=== PATIENT | male | born 1990 | race African-American/Black ===

== ENCOUNTER 2016-12-29 15:38 | Emergency (ER) | payer SELFPAY ==
[2016-12-29 15:44] VITALS: BP 135/82
--- NOTE | 2016-12-29 16:20 | ER Document Report ---
ED Medical Screen (RME) - General Stated Complaint: BACK PAIN Notes: Patient complains of lower back pain that started yesterday after moving heavy items out of his yard. States he has had back pain before. Pain will radiate occasionally down the right leg. Denies loss of control of bowels or bladder. I have greeted and performed a rapid initial assessment of this patient. A comprehensive ED assessment and evaluation of the patient, analysis of test results and completion of the medical decision making process will be conducted by additional ED providers. - Related Data Allergies/Adverse Reactions: No Known Allergies Allergy (Verified 10/08/13 14:02) Past Medical History - Past Medical History Cardiac Medical History: Denies: Hx Atrial Fibrillation, Hx Congestive Heart Failure, Hx Coronary Artery Disease, Hx DVT, Hx Heart Attack, Hx Hypercholesterolemia, Hx Hypertension, Hx Peripheral Vascular Disease, Hx Pulmonary Embolism Pulmonary Medical History: Denies: Hx Asthma, Hx Bronchitis, Hx COPD, Hx Pneumonia Neurological Medical History: Denies: Hx Cerebrovascular Accident, Hx Migraine, Hx Seizures Endocrine Medical History: Reports: Hx Diabetes Mellitus Type 1 Renal/ Medical History: Denies: Hx Benign Prostatic Hyperplasia, Hx End Stage Renal Disease, Hx Epididymitis, Hx Hemodialysis, Hx Hydrocele, Hx Kidney Stones , Hx Peritoneal Dialysis, Hx Renal Insufficiency, Hx Testicular Torsion, Hx Varicocele Malignancy Medical History: Denies Hx Bone Cancer, Denies Hx Brain Cancer, Denies Hx Colorectal Cancer, Denies Hx Leukemia, Denies Hx Liver Cancer, Denies Hx Lung Cancer, Denies Hx Lymphoma, Denies Hx Pancreatic Cancer, Denies Hx Prostate Cancer, Denies Hx Renal (Kidney) Cancer, Denies Hx Skin Cancer, Denies Hx Testicular Cancer GI Medical History: Reports: Hx Gastroesophageal Reflux Disease. Denies: Hx Cirrhosis, Hx Crohn's Disease, Hx Diverticulitis, Hx Gastritis, Hx Hepatitis, Hx Hiatal Hernia, Hx Irritable Bowel, Hx Liver Failure, Hx Ulcer, Hx Ulcerative Colitis Musculoskeltal Medical History: Denies Hx Arthritis, Denies Hx Fibromyalgia, Denies Hx Gout, Denies Hx Multiple Sclerosis, Denies Hx Muscular Dystrophy, Denies Hx Muscle Spasm, Denies Hx Muscle Weakness, Denies Hx Musculoskeletal Deformity, Denies Hx Musculoskeletal Trauma Skin Medical History: Denies Hx Cellulitis, Denies Hx Eczema, Denies Hx MRSA, Denies Hx Psoriasis Psychiatric Medical History: Denies: Hx Anxiety, Hx Attention Deficit Hyperactivity Disorder, Hx Bipolar Disorder, Hx Borderline Personality Disorder, Hx Dementia, Hx Depression, Hx Obsessive Compulsive Disorder, Hx Personality Disorder, Hx Post Traumatic Stress Disorder, Hx Schizoaffective Disorder, Hx Schizophrenia Traumatic Medical History: Denies: Hx Fractures, Hx Gunshot Wound, Hx Liver Laceration, Hx Pneumothorax, Hx Spine Fracture, Hx Spleen Laceration/Rupture, Hx Traumatic Brain Injury Infectious Medical History: Denies: Hx C-Diff, Hx Hepatitis, Hx HIV, Hx MRSA, Hx VRE Past Surgical History: Reports: Hx Appendectomy - Immunizations Hx Diphtheria, Pertussis, Tetanus Vaccination: Yes - unk Physical Exam - Vital signs Vitals: Temp Pulse Resp BP Pulse Ox 98.4 F 78 16 135/82 H 97 12/29/16 15:43 12/29/16 15:43 12/29/16 15:43 12/29/16 15:43 12/29/16 15:43 - Back Notes: tender lspine and right lumbar muscles more than left. Course - Vital Signs Vital signs: Temp Pulse Resp BP Pulse Ox 98.4 F 78 16 135/82 H 97 12/29/16 15:43 12/29/16 15:43 12/29/16 15:43 12/29/16 15:43 12/29/16 15:43
== END 2016-12-29 19:29 | disposition left against medical advice (07) ==
LOC: ER 15:38
DX: M54.5 Low back pain (principal); E10.9 Type 1 diabetes mellitus without complications; Z53.20 Procedure and treatment not carried out because of patient's decision for unspecified reasons
CPT/HCPCS: 99281

== ENCOUNTER 2017-03-02 09:29 | Emergency (ER) | payer SELFPAY ==
--- NOTE | 2017-03-02 09:46 | ER Document Report ---
ED Medical Screen (RME) - General Chief Complaint: Headache Stated Complaint: FLANK PAIN Time Seen by Provider: 03/02/17 09:39 Notes: The patient is a 26-year-old male, no past medical history, who presents with 4 days of intermittent frontal headache, blurry vision and right flank pain. He has never had these symptoms in the past. No history of kidney stones or migraines. Non-focal neuro exam, non-tender right flank I have greeted and performed a rapid initial assessment of this patient. A comprehensive ED assessment and evaluation of the patient, analysis of test results and completion of the medical decision making process will be conducted by additional ED providers. TRAVEL OUTSIDE OF THE [place] IN LAST 30 DAYS: No - Related Data Allergies/Adverse Reactions: No Known Allergies Allergy (Verified 12/29/16 16:20) Past Medical History - Past Medical History Cardiac Medical History: Denies: Hx Atrial Fibrillation, Hx Congestive Heart Failure, Hx Coronary Artery Disease, Hx DVT, Hx Heart Attack, Hx Hypercholesterolemia, Hx Hypertension, Hx Peripheral Vascular Disease, Hx Pulmonary Embolism Pulmonary Medical History: Denies: Hx Asthma, Hx Bronchitis, Hx COPD, Hx Pneumonia Neurological Medical History: Denies: Hx Cerebrovascular Accident, Hx Migraine, Hx Seizures Endocrine Medical History: Reports: Hx Diabetes Mellitus Type 1 Renal/ Medical History: Denies: Hx Benign Prostatic Hyperplasia, Hx End Stage Renal Disease, Hx Epididymitis, Hx Hemodialysis, Hx Hydrocele, Hx Kidney Stones , Hx Peritoneal Dialysis, Hx Renal Insufficiency, Hx Testicular Torsion, Hx Varicocele Malignancy Medical History: Denies Hx Bone Cancer, Denies Hx Brain Cancer, Denies Hx Colorectal Cancer, Denies Hx Leukemia, Denies Hx Liver Cancer, Denies Hx Lung Cancer, Denies Hx Lymphoma, Denies Hx Pancreatic Cancer, Denies Hx Prostate Cancer, Denies Hx Renal (Kidney) Cancer, Denies Hx Skin Cancer, Denies Hx Testicular Cancer GI Medical History: Reports: Hx Gastroesophageal Reflux Disease. Denies: Hx Cirrhosis, Hx Crohn's Disease, Hx Diverticulitis, Hx Gastritis, Hx Hepatitis, Hx Hiatal Hernia, Hx Irritable Bowel, Hx Liver Failure, Hx Ulcer, Hx Ulcerative Colitis Musculoskeltal Medical History: Denies Hx Arthritis, Denies Hx Fibromyalgia, Denies Hx Gout, Denies Hx Multiple Sclerosis, Denies Hx Muscular Dystrophy, Denies Hx Muscle Spasm, Denies Hx Muscle Weakness, Denies Hx Musculoskeletal Deformity, Denies Hx Musculoskeletal Trauma Skin Medical History: Denies Hx Cellulitis, Denies Hx Eczema, Denies Hx MRSA, Denies Hx Psoriasis Psychiatric Medical History: Denies: Hx Anxiety, Hx Attention Deficit Hyperactivity Disorder, Hx Bipolar Disorder, Hx Borderline Personality Disorder, Hx Dementia, Hx Depression, Hx Obsessive Compulsive Disorder, Hx Personality Disorder, Hx Post Traumatic Stress Disorder, Hx Schizoaffective Disorder, Hx Schizophrenia Traumatic Medical History: Denies: Hx Fractures, Hx Gunshot Wound, Hx Liver Laceration, Hx Pneumothorax, Hx Spine Fracture, Hx Spleen Laceration/Rupture, Hx Traumatic Brain Injury Infectious Medical History: Denies: Hx C-Diff, Hx Hepatitis, Hx HIV, Hx MRSA, Hx VRE Past Surgical History: Reports: Hx Appendectomy - Immunizations Hx Diphtheria, Pertussis, Tetanus Vaccination: Yes - unk Physical Exam - Vital signs Vitals: Pulse Resp BP Pulse Ox 62 18 151/94 H 100 03/02/17 09:38 03/02/17 09:38 03/02/17 09:38 03/02/17 09:38 Course - Vital Signs Vital signs: Temp Pulse Resp BP Pulse Ox 98.1 F 62 18 151/94 H 100 03/02/17 09:41 03/02/17 09:38 03/02/17 09:38 03/02/17 09:38 03/02/17 09:38
[2017-03-02 10:17] LABS: APPEARANCE,URINE CLEAR; BILIRUBIN,URINE NEGATIVE (NEGATIVE); GLUCOSE, URINE NEGATIVE (NEGATIVE); KETONES,URINE 20 mg/dL (NEGATIVE); LEUKOCYTE ESTERASE,URINE NEGATIVE (NEGATIVE); NITRITE,URINE NEGATIVE (NEGATIVE); PROTEIN,URINE NEGATIVE (NEGATIVE); URINE SPECIFIC GRAVITY 1.024
[2017-03-02] MEDS ORDERED: PROCHLORPERAZINE EDISYLATE INJ 10 MG/2 ML VIAL IV ONE (10:56)
[2017-03-02] MEDS ORDERED: NORMAL SALINE 1000 ML 1,000 ML IV PRN (10:56)
[2017-03-02] MEDS ORDERED: ONDANSETRON HCL INJ/PF 4 MG/2 ML SDV IV ONE (10:56)
[2017-03-02 11:50] LABS: HEMATOCRIT 41.2 % (37.9-51.0); HEMOGLOBIN 13.9 g/dL (13.5-17.0); HGB HCT DIFFERENCE 0.5; MEAN CORPUSCULAR HEMOGLOBIN 28.4 pg (27.0-33.4); MEAN CORPUSCULAR HGB CONC 33.8 g/dL (32.0-36.0); MEAN CORPUSCULAR VOLUME 84 fl (80-97); RED CELL DISTRIBUTION WIDTH 14.6 % (11.5-14.0); WHITE BLOOD COUNT 8.8 10^3/uL (4.0-10.5)
[2017-03-02 12:07] LABS: ALANINE AMINOTRANSFERASE 41 U/L (21-72); ALBUMIN 4.3 g/dL (3.5-5.0); ALKALINE PHOSPHATASE 65 U/L (38-126); ANION GAP 14 (5-19); ASPARTATE AMINO TRANSFERASE 19 U/L (17-59); BILIRUBIN,DIRECT 0.2 mg/dL (0.0-0.4); BILIRUBIN,TOTAL 0.8 mg/dL (0.2-1.3); BLOOD UREA NITROGEN 12 mg/dL (7-20); CALCIUM 9.6 mg/dL (8.4-10.2); CARBON DIOXIDE 25 mmol/L (22-30); CHLORIDE 104 mmol/L (98-107); CREATININE RESULT 0.82 mg/dL (0.52-1.25); GLUCOSE 103 mg/dL (75-110); LIPASE 40.7 U/L (23-300); POTASSIUM 3.8 mmol/L (3.6-5.0); SODIUM 143.4 mmol/L (137-145); TOTAL PROTEIN 6.8 g/dL (6.3-8.2)
[2017-03-02 12:12] LABS: URINE BARBITURATES SCREEN NEGATIVE; URINE METHADONE SCREEN NEGATIVE; URINE OPIATES LOW NEGATIVE; URINE PHENCYCLIDINE SCREEN NEGATIVE
[2017-03-02 12:30] VITALS: BP 161/98
--- NOTE | 2017-03-02 12:37 | ER Document Report ---
ED General - General Chief Complaint: Headache Stated Complaint: FLANK PAIN Time Seen by Provider: 03/02/17 09:39 TRAVEL OUTSIDE OF THE [place] IN LAST 30 DAYS: No - HPI Patient complains to provider of: headache flank pain feeling unwell Notes: Patient's coming in for evaluation of right flank pain headache global feeling unwell. Is been ongoing for approximately 3-4 days. Patient denies any fevers chills nausea vomiting diarrhea chest pain abdominal pain. Patient denies any recent travel denies any recent trauma. According to the significant other at bedside patient does have a very poor diet patient has been monitoring his blood pressure at home which has been reading "very high"patient blood pressure today is elevated. Patient does have a family history of diabetes and hypertension. Patient states he does not smoke does not do any drugs. - Related Data Allergies/Adverse Reactions: No Known Allergies Allergy (Verified 12/29/16 16:20) Past Medical History - Social History Smoking Status: Current Every Day Smoker Chew tobacco use (# tins/day): No Frequency of alcohol use: None Drug Abuse: Marijuana Family History: Reviewed & Not Pertinent Patient has suicidal ideation: No Patient has homicidal ideation: No - Past Medical History Cardiac Medical History: Denies: Hx Atrial Fibrillation, Hx Congestive Heart Failure, Hx Coronary Artery Disease, Hx DVT, Hx Heart Attack, Hx Hypercholesterolemia, Hx Hypertension, Hx Peripheral Vascular Disease, Hx Pulmonary Embolism Pulmonary Medical History: Denies: Hx Asthma, Hx Bronchitis, Hx COPD, Hx Pneumonia Neurological Medical History: Denies: Hx Cerebrovascular Accident, Hx Migraine, Hx Seizures Endocrine Medical History: Reports: Hx Diabetes Mellitus Type 1 Renal/ Medical History: Denies: Hx Benign Prostatic Hyperplasia, Hx End Stage Renal Disease, Hx Epididymitis, Hx Hemodialysis, Hx Hydrocele, Hx Kidney Stones , Hx Peritoneal Dialysis, Hx Renal Insufficiency, Hx Testicular Torsion, Hx Varicocele Malignancy Medical History: Denies Hx Bone Cancer, Denies Hx Brain Cancer, Denies Hx Colorectal Cancer, Denies Hx Leukemia, Denies Hx Liver Cancer, Denies Hx Lung Cancer, Denies Hx Lymphoma, Denies Hx Pancreatic Cancer, Denies Hx Prostate Cancer, Denies Hx Renal (Kidney) Cancer, Denies Hx Skin Cancer, Denies Hx Testicular Cancer GI Medical History: Reports: Hx Gastroesophageal Reflux Disease. Denies: Hx Cirrhosis, Hx Crohn's Disease, Hx Diverticulitis, Hx Gastritis, Hx Hepatitis, Hx Hiatal Hernia, Hx Irritable Bowel, Hx Liver Failure, Hx Ulcer, Hx Ulcerative Colitis Musculoskeltal Medical History: Denies Hx Arthritis, Denies Hx Fibromyalgia, Denies Hx Gout, Denies Hx Multiple Sclerosis, Denies Hx Muscular Dystrophy, Denies Hx Muscle Spasm, Denies Hx Muscle Weakness, Denies Hx Musculoskeletal Deformity, Denies Hx Musculoskeletal Trauma Skin Medical History: Denies Hx Cellulitis, Denies Hx Eczema, Denies Hx MRSA, Denies Hx Psoriasis Psychiatric Medical History: Denies: Hx Anxiety, Hx Attention Deficit Hyperactivity Disorder, Hx Bipolar Disorder, Hx Borderline Personality Disorder, Hx Dementia, Hx Depression, Hx Obsessive Compulsive Disorder, Hx Personality Disorder, Hx Post Traumatic Stress Disorder, Hx Schizoaffective Disorder, Hx Schizophrenia Traumatic Medical History: Denies: Hx Fractures, Hx Gunshot Wound, Hx Liver Laceration, Hx Pneumothorax, Hx Spine Fracture, Hx Spleen Laceration/Rupture, Hx Traumatic Brain Injury Infectious Medical History: Denies: Hx C-Diff, Hx Hepatitis, Hx HIV, Hx MRSA, Hx VRE Past Surgical History: Reports: Hx Appendectomy - Immunizations Hx Diphtheria, Pertussis, Tetanus Vaccination: Yes - unk Hx Pneumococcal Vaccination: 10/22/10 Review of Systems - Review of Systems Constitutional: Other - Feeling unwell right flank pain EENT: No symptoms reported Cardiovascular: No symptoms reported Respiratory: No symptoms reported Gastrointestinal: No symptoms reported Genitourinary: No symptoms reported Male Genitourinary: No symptoms reported Musculoskeletal: No symptoms reported Skin: No symptoms reported Hematologic/Lymphatic: No symptoms reported Neurological/Psychological: No symptoms reported Physical Exam - Vital signs Vitals: Pulse Resp BP Pulse Ox 62 18 151/94 H 100 03/02/17 09:38 03/02/17 09:38 03/02/17 09:38 03/02/17 09:38 Interpretation: Normal - General General appearance: Appears well, Alert - HEENT Head: Normocephalic, Atraumatic Eyes: Normal Pupils: PERRL - Respiratory Respiratory status: No respiratory distress Chest status: Nontender Breath sounds: Normal Chest palpation: Normal - Cardiovascular Rhythm: Regular Heart sounds: Normal auscultation Murmur: No - Abdominal Inspection: Normal Distension: No distension Bowel sounds: Normal Tenderness: Nontender Organomegaly: No organomegaly - Back Back: Normal, Nontender - Extremities General upper extremity: Normal inspection, Nontender, Normal color, Normal ROM , Normal temperature General lower extremity: Normal inspection, Nontender, Normal color, Normal ROM , Normal temperature, Normal weight bearing. No: Demi's sign - Neurological Neuro grossly intact: Yes Cognition: Normal Orientation: AAOx4 Juan C Coma Scale Eye Opening: Spontaneous Lyndon Coma Scale Verbal: Oriented Juan C Coma Scale Motor: Obeys Commands Lyndon Coma Scale Total: 15 Speech: Normal Motor strength normal: LUE, RUE, LLE, RLE Sensory: Normal - Psychological Associated symptoms: Normal affect, Normal mood - Skin Skin Temperature: Warm Skin Moisture: Dry Skin Color: Normal Course - Re-evaluation Re-evalutation: 03/02/17 15:26 Patient coming in for evaluation of flank pain. Urine does show an elevated specific gravity possibly custody your dehydration. Patient was given IV fluids patient's feeling better after medication. Patient's blood pressure does continue to elevate will start patient on hydrochlorothiazide. Patient will be discharged home follow-up along the local clinics or PCP. 03/02/17 15:27 The patient presents with headache without signs of PROCEDURE RN bleed, stroke, infection , or other serious etiology. The patient is neurologically intact. Given the extremely low risk of these diagnoses further testing and evaluation for these possibilities does not appear to be indicated at this time. The patient has been instructed to return if the symptoms worsen or change in any way.. - Vital Signs Vital signs: Temp Pulse Resp BP Pulse Ox 97.8 F 64 20 161/98 H 100 03/02/17 12:29 03/02/17 12:29 03/02/17 12:29 03/02/17 12:29 03/02/17 12:29 - Laboratory Result Diagrams: 03/02/17 11:40 03/02/17 11:40 Laboratory results interpreted by me: 03/02/17 03/02/17 09:54 11:40 RDW 14.6 H Urine Ketones 20 H Urine Urobilinogen 2.0 H Discharge - Discharge Clinical Impression: Dehydration Headache Qualifiers: Headache type: unspecified Headache chronicity pattern: unspecified pattern Intractability: not intractable Qualified Code(s): R51 - Headache Hypertension Qualifiers: Hypertension type: essential hypertension Qualified Code(s): I10 - Essential ( primary) hypertension Condition: Good Disposition: HOME, SELF-CARE Instructions: Headache ([facility]), Hydrochlorothiazide ([facility]), Family Physicians / Practices Additional Instructions: You were evaluated today for headache feeling unwell. Lab work is consistent with dehydration, your urine was very concentrated. The rest of the lab looks very well no signs of diabetes. Your blood pressure has remained elevated. Will start you on a medication: Hydrochlorothiazide I highly recommend following up with the clinics provided or the doctors provided for further management of your blood pressure. Please drink plenty water please eat healthy You may take the Compazine for your headache Prescriptions: Hydrochlorothiazide 12.5 mg PO DAILY #30 capsule Prochlorperazine Maleate [Compazine] 10 mg PO Q6 #20 tablet Forms: Return to Work
== END 2017-03-02 12:55 | disposition home or self-care (01) ==
LOC: ER 09:29
DX: I10 Essential (primary) hypertension (principal); E86.0 Dehydration; R51 Headache; R10.9 Unspecified abdominal pain; E10.9 Type 1 diabetes mellitus without complications; Z83.3 Family history of diabetes mellitus; Z82.49 Family history of ischemic heart disease and other diseases of the circulatory system
CPT/HCPCS: 99284; 96361; 96374; 96375; 36415; 83690; 85027; 80053; 81001; 80307; 83036; J0780; J2405; J7030

== ENCOUNTER 2017-03-25 13:55 | Emergency (ER) | payer SELFPAY ==
--- NOTE | 2017-03-25 14:17 | ER Document Report ---
ED Medical Screen (RME) - General Stated Complaint: BLOOD PRESSURE PROBLEMS Time Seen by Provider: 03/25/17 14:15 Notes: abdominal pain for 3 days, nausea without vomiting sweating for one month after starting HTN med TRAVEL OUTSIDE OF THE [place] IN LAST 30 DAYS: No - Related Data Allergies/Adverse Reactions: No Known Allergies Allergy (Verified 12/29/16 16:20) Past Medical History - Past Medical History Cardiac Medical History: Denies: Hx Atrial Fibrillation, Hx Congestive Heart Failure, Hx Coronary Artery Disease, Hx DVT, Hx Heart Attack, Hx Hypercholesterolemia, Hx Hypertension, Hx Peripheral Vascular Disease, Hx Pulmonary Embolism Pulmonary Medical History: Denies: Hx Asthma, Hx Bronchitis, Hx COPD, Hx Pneumonia Neurological Medical History: Denies: Hx Cerebrovascular Accident, Hx Migraine, Hx Seizures Endocrine Medical History: Reports: Hx Diabetes Mellitus Type 1 Renal/ Medical History: Denies: Hx Benign Prostatic Hyperplasia, Hx End Stage Renal Disease, Hx Epididymitis, Hx Hemodialysis, Hx Hydrocele, Hx Kidney Stones , Hx Peritoneal Dialysis, Hx Renal Insufficiency, Hx Testicular Torsion, Hx Varicocele Malignancy Medical History: Denies Hx Bone Cancer, Denies Hx Brain Cancer, Denies Hx Colorectal Cancer, Denies Hx Leukemia, Denies Hx Liver Cancer, Denies Hx Lung Cancer, Denies Hx Lymphoma, Denies Hx Pancreatic Cancer, Denies Hx Prostate Cancer, Denies Hx Renal (Kidney) Cancer, Denies Hx Skin Cancer, Denies Hx Testicular Cancer GI Medical History: Reports: Hx Gastroesophageal Reflux Disease. Denies: Hx Cirrhosis, Hx Crohn's Disease, Hx Diverticulitis, Hx Gastritis, Hx Hepatitis, Hx Hiatal Hernia, Hx Irritable Bowel, Hx Liver Failure, Hx Ulcer, Hx Ulcerative Colitis Musculoskeltal Medical History: Denies Hx Arthritis, Denies Hx Fibromyalgia, Denies Hx Gout, Denies Hx Multiple Sclerosis, Denies Hx Muscular Dystrophy, Denies Hx Muscle Spasm, Denies Hx Muscle Weakness, Denies Hx Musculoskeletal Deformity, Denies Hx Musculoskeletal Trauma Skin Medical History: Denies Hx Cellulitis, Denies Hx Eczema, Denies Hx MRSA, Denies Hx Psoriasis Psychiatric Medical History: Denies: Hx Anxiety, Hx Attention Deficit Hyperactivity Disorder, Hx Bipolar Disorder, Hx Borderline Personality Disorder, Hx Dementia, Hx Depression, Hx Obsessive Compulsive Disorder, Hx Personality Disorder, Hx Post Traumatic Stress Disorder, Hx Schizoaffective Disorder, Hx Schizophrenia Traumatic Medical History: Denies: Hx Fractures, Hx Gunshot Wound, Hx Liver Laceration, Hx Pneumothorax, Hx Spine Fracture, Hx Spleen Laceration/Rupture, Hx Traumatic Brain Injury Infectious Medical History: Denies: Hx C-Diff, Hx Hepatitis, Hx HIV, Hx MRSA, Hx VRE Past Surgical History: Reports: Hx Appendectomy - Immunizations Hx Diphtheria, Pertussis, Tetanus Vaccination: Yes - unk
[2017-03-25] MEDS ORDERED: ONDANSETRON 4 MG TAB.RAPDIS PO ONE (14:18)
[2017-03-25 15:35] LABS: ABSOLUTE BASOPHILS # (AUTO) 0.1 10^3/uL (0.0-0.2); ABSOLUTE EOSINOPHILS # (AUTO) 0.7 10^3/uL (0.0-0.6); ABSOLUTE LYMPHOCYTES (AUTO) 3.2 10^3/uL (0.5-4.7); ABSOLUTE MONOCYTES (AUTO) 0.7 10^3/uL (0.1-1.4); ABSOLUTE NEUT (AUTO) 6.3 10^3/uL (1.7-8.2); BASOPHILS % (AUTO) 0.8 % (0-2); HEMATOCRIT 48.7 % (37.9-51.0); HEMOGLOBIN 16.3 g/dL (13.5-17.0); HGB HCT DIFFERENCE 0.2; LYMPHOCYTES % (AUTO) 29.3 % (13-45); MEAN CORPUSCULAR HEMOGLOBIN 27.9 pg (27.0-33.4); MEAN CORPUSCULAR HGB CONC 33.5 g/dL (32.0-36.0); MEAN CORPUSCULAR VOLUME 83 fl (80-97); MONOCYTES % (AUTO) 6.5 % (3-13); RED BLOOD COUNT 5.84 10^6/uL (4.35-5.55); RED CELL DISTRIBUTION WIDTH 14.2 % (11.5-14.0); SEGMENTED NEUTROPHILS % (AUTO) 57.4 % (42-78); WHITE BLOOD COUNT 10.9 10^3/uL (4.0-10.5)
[2017-03-25 15:52] LABS: ANION GAP 17 (5-19); BLOOD UREA NITROGEN 17 mg/dL (7-20); CALCIUM 10.6 mg/dL (8.4-10.2); CARBON DIOXIDE 25 mmol/L (22-30); CHLORIDE 95 mmol/L (98-107); CREATININE RESULT 1.17 mg/dL (0.52-1.25); GLUCOSE 107 mg/dL (75-110); LIPASE 60.3 U/L (23-300); POTASSIUM 3.8 mmol/L (3.6-5.0); SODIUM 136.6 mmol/L (137-145)
[2017-03-25 16:30] VITALS: BP 132/99
[2017-03-25] MEDS ORDERED: AMLODIPINE BESYLATE 5 MG TABLET PO ONE (16:37)
[2017-03-25] MEDS ORDERED: ONDANSETRON ODT 4 MG TAB (6 TAB/DSPK) PO PRN (16:37)
--- NOTE | 2017-03-25 16:38 | ER Document Report ---
ED GI/ - General Chief Complaint: Abdominal Pain Stated Complaint: BLOOD PRESSURE PROBLEMS Time Seen by Provider: 03/25/17 14:15 Mode of Arrival: Ambulatory Information source: Patient Notes: Patient is a 27-year-old male who presents to the ER today for sweating, lightheadedness, drinking lots of water but unable to urinate sometimes. Patient was started on hydrochlorothiazide 1 month ago and states that all of the symptoms began since that time. He also stopped smoking marijuana 3 days ago and states that the symptoms have all worsened since that time. He admits to some abdominal pain all in the center of his abdomen since stopping smoking marijuana. TRAVEL OUTSIDE OF THE [place] IN LAST 30 DAYS: No - Related Data Allergies/Adverse Reactions: No Known Allergies Allergy (Verified 12/29/16 16:20) Past Medical History - General Information source: Patient - Social History Smoking Status: Current Every Day Smoker Family History: Reviewed & Not Pertinent - Past Medical History Cardiac Medical History: Denies: Hx Atrial Fibrillation, Hx Congestive Heart Failure, Hx Coronary Artery Disease, Hx DVT, Hx Heart Attack, Hx Hypercholesterolemia, Hx Hypertension, Hx Peripheral Vascular Disease, Hx Pulmonary Embolism Pulmonary Medical History: Denies: Hx Asthma, Hx Bronchitis, Hx COPD, Hx Pneumonia Neurological Medical History: Denies: Hx Cerebrovascular Accident, Hx Migraine, Hx Seizures Endocrine Medical History: Reports: Hx Diabetes Mellitus Type 1 Renal/ Medical History: Denies: Hx Benign Prostatic Hyperplasia, Hx End Stage Renal Disease, Hx Epididymitis, Hx Hemodialysis, Hx Hydrocele, Hx Kidney Stones , Hx Peritoneal Dialysis, Hx Renal Insufficiency, Hx Testicular Torsion, Hx Varicocele Malignancy Medical History: Denies Hx Bone Cancer, Denies Hx Brain Cancer, Denies Hx Colorectal Cancer, Denies Hx Leukemia, Denies Hx Liver Cancer, Denies Hx Lung Cancer, Denies Hx Lymphoma, Denies Hx Pancreatic Cancer, Denies Hx Prostate Cancer, Denies Hx Renal (Kidney) Cancer, Denies Hx Skin Cancer, Denies Hx Testicular Cancer GI Medical History: Reports: Hx Gastroesophageal Reflux Disease. Denies: Hx Cirrhosis, Hx Crohn's Disease, Hx Diverticulitis, Hx Gastritis, Hx Hepatitis, Hx Hiatal Hernia, Hx Irritable Bowel, Hx Liver Failure, Hx Ulcer, Hx Ulcerative Colitis Musculoskeltal Medical History: Denies Hx Arthritis, Denies Hx Fibromyalgia, Denies Hx Gout, Denies Hx Multiple Sclerosis, Denies Hx Muscular Dystrophy, Denies Hx Muscle Spasm, Denies Hx Muscle Weakness, Denies Hx Musculoskeletal Deformity, Denies Hx Musculoskeletal Trauma Skin Medical History: Denies Hx Cellulitis, Denies Hx Eczema, Denies Hx MRSA, Denies Hx Psoriasis Psychiatric Medical History: Denies: Hx Anxiety, Hx Attention Deficit Hyperactivity Disorder, Hx Bipolar Disorder, Hx Borderline Personality Disorder, Hx Dementia, Hx Depression, Hx Obsessive Compulsive Disorder, Hx Personality Disorder, Hx Post Traumatic Stress Disorder, Hx Schizoaffective Disorder, Hx Schizophrenia Traumatic Medical History: Denies: Hx Fractures, Hx Gunshot Wound, Hx Liver Laceration, Hx Pneumothorax, Hx Spine Fracture, Hx Spleen Laceration/Rupture, Hx Traumatic Brain Injury Infectious Medical History: Denies: Hx C-Diff, Hx Hepatitis, Hx HIV, Hx MRSA, Hx VRE Past Surgical History: Reports: Hx Appendectomy - Immunizations Hx Diphtheria, Pertussis, Tetanus Vaccination: Yes - unk Hx Pneumococcal Vaccination: 10/22/10 Review of Systems - Review of Systems Constitutional: See HPI EENT: No symptoms reported Cardiovascular: See HPI Respiratory: No symptoms reported Gastrointestinal: No symptoms reported Genitourinary: See HPI Male Genitourinary: No symptoms reported Musculoskeletal: No symptoms reported Skin: No symptoms reported Hematologic/Lymphatic: No symptoms reported Neurological/Psychological: No symptoms reported Physical Exam - Vital signs Vitals: Temp Pulse BP Pulse Ox 98.4 F 95 126/89 H 97 03/25/17 14:18 03/25/17 14:18 03/25/17 14:18 03/25/17 14:18 - Notes Notes: PHYSICAL EXAMINATION: GENERAL: Well-appearing and in no acute distress. HEAD: Atraumatic, normocephalic. EYES: Pupils equal round and reactive to light, extraocular movements intact, sclera anicteric, conjunctiva are normal. NECK: Normal range of motion, supple without lymphadenopathy LUNGS: CTAB and equal. No wheezes rales or rhonchi. HEART: Regular rate and rhythm without murmurs ABDOMEN: Soft, no tenderness. No guarding, no rebound BACK: no vertebral tenderness, normal ROM GI/: no CVA tenderness EXTREMITIES: Normal range of motion, no pitting edema. No cyanosis. NEUROLOGICAL: Cranial nerves grossly intact. Normal sensory/motor exams. PSYCH: Normal mood, normal affect. SKIN: Warm, Dry, normal turgor, no rashes or lesions noted Course - Re-evaluation Re-evalutation: 03/25/17 16:35 Lab work is unremarkable today. Patient was given to come back for his nausea. I do believe that his abdominal pain and nausea may be coming from the fact that he was a daily marijuana user and abruptly stopped 3 days ago. I will also change patient's blood pressure medication from hydrochlorothiazide to a different medication and he has an appointment with his primary care provider this week. - Vital Signs Vital signs: Temp Pulse Resp BP Pulse Ox 97.8 F 79 20 132/99 H 100 03/25/17 16:29 03/25/17 16:29 03/25/17 16:29 03/25/17 16:29 03/25/17 16:29 - Laboratory Result Diagrams: 03/25/17 15:20 03/25/17 15:20 Laboratory results interpreted by me: 03/25/17 03/25/17 15:20 15:20 WBC 10.9 H RBC 5.84 H RDW 14.2 H Absolute Eosinophils 0.7 H Sodium 136.6 L Chloride 95 L Calcium 10.6 H Discharge - Discharge Clinical Impression: Nausea Hypertension Qualifiers: Hypertension type: essential hypertension Qualified Code(s): I10 - Essential ( primary) hypertension Abdominal pain Qualifiers: Abdominal location: generalized Qualified Code(s): R10.84 - Generalized abdominal pain Condition: Stable Disposition: HOME, SELF-CARE Additional Instructions: Return immediately for any new or worsening symptoms. Follow up with primary care provider, call tomorrow to make followup appointment. Prescriptions: Amlodipine Besylate 5 mg PO Q12H #14 tab Forms: Return to Work
== END 2017-03-25 16:45 | disposition home or self-care (01) ==
LOC: ER 13:55
DX: R11.0 Nausea (principal); I10 Essential (primary) hypertension; R10.84 Generalized abdominal pain; R61 Generalized hyperhidrosis; F17.200 Nicotine dependence, unspecified, uncomplicated; E10.9 Type 1 diabetes mellitus without complications; K21.9 Gastro-esophageal reflux disease without esophagitis
CPT/HCPCS: 99284; 36415; 83690; 85025; 80048; S0119

== ENCOUNTER 2017-08-07 16:35 | Emergency (ER) | payer SELFPAY ==
[2017-08-07] MEDS ORDERED: KETOROLAC TROMETHAMINE 60 MG/2 ML SDV IM ONE (17:24)
--- NOTE | 2017-08-07 17:31 | ER Document Report ---
ED Neck/Back Problem - General Chief Complaint: Back Pain Stated Complaint: BACK PAIN Time Seen by Provider: 08/07/17 17:12 Mode of Arrival: Ambulatory Information source: Patient Notes: 27-year-old male presents to ED for complaint of back pain since Sunday. He states on Sunday the pain was severe unbearable he could not get up or walk due to the pain. He states he went to work but just sat all day. He states by Sunday he was able to move around a little bit but was still in a lot of pain. By Sunday he was able to bend over but was still in pain. He states today he is doing a little better but is concerned because the pain is continuing. He states he lifts weights at work off the floor but that is the only way he could have injured his back. He states Sunday he was not eating like he should and his checked his sugar was 45 states he then ate some food and has not had a low sugar since then. He states he never eats breakfast and usually just eats supper and he has multiple family members that have diabetes. TRAVEL OUTSIDE OF THE [place] IN LAST 30 DAYS: No - HPI Patient complains to provider of: Pain - Left flank Onset: Last week - Sunday Onset: Gradual - States is starting to get better Timing: Better Quality of pain: Achy, Throbbing Severity: Moderate Pain Level: 2 Context: Lifting Recent injury: Possibly Associated symptoms: Other - Left flank pain Exacerbated by: Movement of trunk Relieved by: Nothing Similar symptoms previously: Yes Recently seen / treated by doctor: No - Related Data Allergies/Adverse Reactions: No Known Allergies Allergy (Verified 08/07/17 16:40) Past Medical History - General Information source: Patient - Social History Smoking Status: Current Every Day Smoker Chew tobacco use (# tins/day): No Smoking Education Provided: Yes - Less than 2 minutes Frequency of alcohol use: None Drug Abuse: Marijuana Occupation: car wash Lives with: Spouse/Significant other Family History: Arthritis, DM, Hyperlipidemia, Hypertension. denies: CAD, COPD , CVA, Malignancy, Thyroid Disfunction Patient has suicidal ideation: No Patient has homicidal ideation: No - Past Medical History Cardiac Medical History: Reports: Hx Hypertension Pulmonary Medical History: Reports: None EENT Medical History: Reports: None Neurological Medical History: Reports: None Endocrine Medical History: Reports: None Renal/ Medical History: Reports: Hx Kidney Stones Malignancy Medical History: Reports None GI Medical History: Reports: Hx Gastroesophageal Reflux Disease Musculoskeltal Medical History: Reports Hx Musculoskeletal Deformity Skin Medical History: Reports None Psychiatric Medical History: Reports: None Traumatic Medical History: Reports: None Infectious Medical History: Reports: None Past Surgical History: Reports: Hx Appendectomy - Immunizations Hx Pneumococcal Vaccination: 10/22/10 Review of Systems - Review of Systems Constitutional: No symptoms reported EENT: No symptoms reported Cardiovascular: No symptoms reported Respiratory: No symptoms reported Gastrointestinal: No symptoms reported Genitourinary: Flank pain Male Genitourinary: No symptoms reported Musculoskeletal: No symptoms reported Skin: No symptoms reported Hematologic/Lymphatic: No symptoms reported Neurological/Psychological: No symptoms reported -: Yes All other systems reviewed and negative Physical Exam - Vital signs Vitals: Temp Pulse BP Pulse Ox 98.3 F 81 125/72 97 08/07/17 16:40 08/07/17 16:40 08/07/17 16:40 08/07/17 16:40 Interpretation: Normal - General General appearance: Appears well, Alert - HEENT Head: Normocephalic, Atraumatic Eyes: Normal Pupils: PERRL - Respiratory Respiratory status: No respiratory distress Chest status: Nontender Breath sounds: Normal Chest palpation: Normal - Cardiovascular Rhythm: Regular Heart sounds: Normal auscultation Murmur: No - Abdominal Inspection: Normal Distension: No distension Bowel sounds: Normal Tenderness: Nontender Organomegaly: No organomegaly - Back Back: Normal, CVA tenderness. No: Tender, Deformity/step-off, Vertebra tenderness, Scars, Scoliosis, Wounds - Extremities General upper extremity: Normal inspection, Nontender, Normal color, Normal ROM , Normal temperature General lower extremity: Normal inspection, Nontender, Normal color, Normal ROM , Normal temperature, Normal weight bearing. No: Demi's sign - Neurological Neuro grossly intact: Yes Cognition: Normal Orientation: AAOx4 Juan C Coma Scale Eye Opening: Spontaneous [place] Coma Scale Verbal: Oriented Juan C Coma Scale Motor: Obeys Commands Juan C Coma Scale Total: 15 Speech: Normal Motor strength normal: LUE, RUE, LLE, RLE Sensory: Normal - Psychological Associated symptoms: Normal affect, Normal mood - Skin Skin Temperature: Warm Skin Moisture: Dry Skin Color: Normal Course - Re-evaluation Re-evalutation: 08/07/17 18:[address] and urine with patient. Written reports of both given to patient to follow-up with the primary doctor. Patient given a prescription for Flomax and ibuprofen for his stone in the left ureter. - Vital Signs Vital signs: Temp Pulse Resp BP Pulse Ox 98.3 F 81 125/72 97 08/07/17 16:40 08/07/17 16:40 08/07/17 16:40 08/07/17 16:40 - Laboratory Laboratory results interpreted by me: 08/07/17 18:02 Urine Blood SMALL H - Diagnostic Test Radiology reviewed: Image reviewed, Reports reviewed Discharge - Discharge Clinical Impression: Left ureteral stone Condition: Stable Disposition: HOME, SELF-CARE Additional Instructions: KIDNEY STONE: You are passing or have passed a kidney stone. These stones are usually due to increased calcium or uric acid concentrations in your urine. Stones within the kidney itself are not painful. The pain occurs as the stone leaves the kidney to pass down the long tube, called the ureter, leading to the bladder. If the stone is small, it will usually pass by itself. Most patients can pass the stone at home. You will usually receive medications for pain, nausea or vomiting, and sometimes a medication to assist in passing the kidney stone. However, if the pain is very severe or if vomiting prevents you from taking oral pain medications, you may need to return for further treatment. Drink three or four quarts of fluids per day. You will be given pain medication (if needed) and urine strainers. Strain all your urine to see if the stone passes. If your doctor has asked you to bring the stone in for analysis, return with the stone once it has passed. Return if pain or vomiting become severe, if you develop a high fever, if you are unable to pass your urine, or if other unusual symptoms occur. TORADOL INJECTION: You have been given an injection of ketorolac tromethamine (Toradol). This is an excellent, safe drug for pain control. It also has potent antiinflammatory action. You should have significant pain relief within about one hour. Toradol is not addicting and is non-sedating. It does not interfere with driving or work. Call or return if you develop itching, hives, shortness of breath, or rash. ANTINAUSEA MEDICATION: You have been given a medication to suppress nausea and vomiting. This type of medication can be given as a shot, pill, or suppository. It will usually last for many hours. Pills and shots usually last six to eight hours, suppositories last about 12 hours. For the typical illness, only one or two doses of the medication may be necessary. Mild lightheadedness may occur. This type of medicine can cause drowsiness. Do not drive or operate dangerous machinery while under its influence. Do not mix with alcohol. See your doctor at once if you have muscle spasms or tightness, or uncontrollable motions (particularly of the neck, mouth, or jaw). Persistent vomiting or severe lightheadedness should also be evaluated by the physician. FLOMAX (tamsulosin): Flomax is a medicine that shrinks the prostate gland. It helps relieve symptoms of benign prostatic hypertrophy, such as frequent urination, weak stream, and inadequate emptying. It has been shown to dilate the ureter (tube leading from the kidney to the bladder) and help in passing kidney stones Flomax usually causes no side effects. You may notice slight tiredness and dizziness for a few days. Some patients develop nasal congestion. Rarely, impotence can occur. If the symptoms are bothersome and don't improve with continued use, call your doctor. Contact your doctor or return if you have fainting spells, severe weakness or dizziness, shortness of breath, or rash. FOLLOW-UP CARE: If you have been referred to a physician for follow-up care, call the physician s office for an appointment as you were instructed or within the next two days. If you experience worsening or a significant change in your symptoms, notify the physician immediately or return to the Emergency Department at any time for re-evaluation. Prescriptions: Ibuprofen 600 mg PO Q6HP PRN #20 tablet PRN Reason: Tamsulosin HCl [Flomax 0.4 mg Cap.sr] 0.4 mg PO DAILY #7 cap.sr.24h Forms: Smoking Cessation Education, Return to Work Referrals: MALACHI ROSE, MARIAJOSE-C [Primary Care Provider] - Follow up as needed
--- NOTE | 2017-08-07 18:14 | RADIOLOGY REPORT (SQ) ---
EXAM DESCRIPTION: CT LTD RENAL STONE PROTOCOL ON COMPLETED DATE/TIME: 08/07/2017 5:51 pm REASON FOR STUDY: left flank pain COMPARISON: None. TECHNIQUE: CT scan of the abdomen and pelvis performed without intravenous or oral contrast. Images reviewed with lung, soft tissue, and bone windows. Reconstructed coronal and sagittal MPR images revi ewed. All images stored on PACS. All CT scanners at this facility use dose modulation, iterative reconstruction, and/or weight based d osing when appropriate to reduce radiation dose to as low as reasonably achievable (ALARA). [facility]: Dose Right [facility]: CareDose [facility]: Dose Right [facility]: Teradose 4D [facility]: Smart [employer] RADIATION DOSE: Up-to-date CT equipment and radiation dose reduction techniques were employed. CTDIv ol: 10.9 mGy. DLP: 555 mGy-cm.mGy. LIMITATIONS: None. FINDINGS: LOWER CHEST: No significant findings. No nodules or infiltrates. NON-CONTRASTED LIVER, SPLEEN, ADRENALS: Evaluation limited by lack of IV contrast. No identified sign ificant masses. PANCREAS: No masses. No peripancreatic inflammatory changes. GALLBLADDER: No identified stones by CT criteria. No inflammatory changes to suggest cholecystitis. RIGHT KIDNEY AND URETER: No suspicious masses. Assessment limited by lack of IV contrast. No signif icant calcifications. No hydronephrosis or hydroureter. LEFT KIDNEY AND URETER: No suspicious masses. Assessment limited by lack of IV contrast. There is a 2 mm calcification in the left side of the pelvis that could possibly be in the distal left ureter. This is seen on image 71 series 3. No hydronephrosis or hydroureter. AORTA AND RETROPERITONEUM: No aneurysm. No retroperitoneal masses or adenopathy. BOWEL AND PERITONEAL CAVITY: No obvious masses or inflammatory changes. No free fluid. APPENDIX: Surgically absent. PELVIS, BLADDER, AND ABDOMINAL WALL:No abnormal masses. No free fluid. Bladder normal. BONES: No significant findings. OTHER: No other significant finding. IMPRESSION: There is a 2 mm calcification the left side of the pelvis that could possibly be the dis laura left ureter. There is no hydronephrosis/ hydroureter, however. COMMENT: Quality ID # 436: Final reports with documentation of one or more dose reduction techniques (e.g., Automated exposure control, adjustment of the mA and/or kV according to patient size, use of iterative reconstruction technique) TECHNICAL DOCUMENTATION: JOB ID: [id number] [employer] [facility]- All Rights Reserved
[2017-08-07 18:37] LABS: APPEARANCE,URINE CLEAR; BILIRUBIN,URINE NEGATIVE (NEGATIVE); GLUCOSE, URINE NEGATIVE (NEGATIVE); KETONES,URINE NEGATIVE (NEGATIVE); LEUKOCYTE ESTERASE,URINE NEGATIVE (NEGATIVE); NITRITE,URINE NEGATIVE (NEGATIVE); PROTEIN,URINE NEGATIVE (NEGATIVE); URINE SPECIFIC GRAVITY 1.018; UROBILINOGEN,URINE NEGATIVE mg/dL (<2.0)
[2017-08-07 19:32] VITALS: BP 127/81
== END 2017-08-07 19:31 | disposition home or self-care (01) ==
LOC: ER 16:35
DX: N20.1 Calculus of ureter (principal); I10 Essential (primary) hypertension; F17.200 Nicotine dependence, unspecified, uncomplicated; Z71.6 Tobacco abuse counseling
CPT/HCPCS: 99284; 96372; 81001; 76380; J1885

== ENCOUNTER 2017-08-21 09:31 | Emergency (ER) | payer SELFPAY ==
--- NOTE | 2017-08-21 10:04 | ER Document Report ---
ED Medical Screen (RME) - General Chief Complaint: Eye Problem Stated Complaint: CLINIC REFFERED Time Seen by Provider: 08/21/17 10:02 Notes: Patient has had 6 months of double vision. He states he just received insurance so he saw an eye doctor yesterday at [facility]. He states the eye doctor told him that his retinas were "swollen". He referred the patient to [facility]. When patient called [facility] this morning they instructed patient come to the emergency department for evaluation. Patient states he has double vision if he looks straight ahead or to the right but no double vision if he looks left. He has some mild headaches. No other significant complaints. TRAVEL OUTSIDE OF THE [place] IN LAST 30 DAYS: No - Related Data Allergies/Adverse Reactions: No Known Allergies Allergy (Verified 08/21/17 09:38) Past Medical History - Past Medical History Cardiac Medical History: Reports: Hx Hypertension Denies: Hx Atrial Fibrillation, Hx Congestive Heart Failure, Hx Coronary Artery Disease, Hx DVT, Hx Heart Attack, Hx Hypercholesterolemia, Hx Peripheral Vascular Disease, Hx Pulmonary Embolism Pulmonary Medical History: Denies: Hx Asthma, Hx Bronchitis, Hx COPD, Hx Pneumonia Neurological Medical History: Denies: Hx Cerebrovascular Accident, Hx Migraine, Hx Seizures Endocrine Medical History: Reports: Hx Diabetes Mellitus Type 1 Renal/ Medical History: Reports: Hx Kidney Stones. Denies: Hx Benign Prostatic Hyperplasia, Hx End Stage Renal Disease, Hx Epididymitis, Hx Hemodialysis, Hx Hydrocele, Hx Peritoneal Dialysis, Hx Renal Insufficiency, Hx Testicular Torsion, Hx Varicocele Malignancy Medical History: Denies Hx Bone Cancer, Denies Hx Brain Cancer, Denies Hx Colorectal Cancer, Denies Hx Leukemia, Denies Hx Liver Cancer, Denies Hx Lung Cancer, Denies Hx Lymphoma, Denies Hx Pancreatic Cancer, Denies Hx Prostate Cancer, Denies Hx Renal (Kidney) Cancer, Denies Hx Skin Cancer, Denies Hx Testicular Cancer GI Medical History: Reports: Hx Gastroesophageal Reflux Disease. Denies: Hx Cirrhosis, Hx Crohn's Disease, Hx Diverticulitis, Hx Gastritis, Hx Hepatitis, Hx Hiatal Hernia, Hx Irritable Bowel, Hx Liver Failure, Hx Ulcer, Hx Ulcerative Colitis Musculoskeltal Medical History: Denies Hx Arthritis, Denies Hx Fibromyalgia, Denies Hx Gout, Denies Hx Multiple Sclerosis, Denies Hx Muscular Dystrophy, Denies Hx Muscle Spasm, Denies Hx Muscle Weakness, Reports Hx Musculoskeletal Deformity, Denies Hx Musculoskeletal Trauma Skin Medical History: Denies Hx Cellulitis, Denies Hx Eczema, Denies Hx MRSA, Denies Hx Psoriasis Psychiatric Medical History: Denies: Hx Anxiety, Hx Attention Deficit Hyperactivity Disorder, Hx Bipolar Disorder, Hx Borderline Personality Disorder, Hx Dementia, Hx Depression, Hx Obsessive Compulsive Disorder, Hx Personality Disorder, Hx Post Traumatic Stress Disorder, Hx Schizoaffective Disorder, Hx Schizophrenia Traumatic Medical History: Denies: Hx Fractures, Hx Gunshot Wound, Hx Liver Laceration, Hx Pneumothorax, Hx Spine Fracture, Hx Spleen Laceration/Rupture, Hx Traumatic Brain Injury Infectious Medical History: Denies: Hx C-Diff, Hx Hepatitis, Hx HIV, Hx MRSA, Hx VRE Past Surgical History: Reports: Hx Appendectomy - Immunizations Hx Diphtheria, Pertussis, Tetanus Vaccination: Yes - unk History of Influenza Vaccine for 07/2017 - 12/2017 Season: No Physical Exam - Vital signs Vitals: Temp Pulse Resp BP Pulse Ox 98.5 F 80 16 126/72 H 97 08/21/17 09:36 08/21/17 09:36 08/21/17 09:36 08/21/17 09:36 08/21/17 09:36 Course - Vital Signs Vital signs: Temp Pulse Resp BP Pulse Ox 98.5 F 80 16 126/72 H 97 08/21/17 09:36 08/21/17 09:36 08/21/17 09:36 08/21/17 09:36 08/21/17 09:36
[2017-08-21 10:37] LABS: ABSOLUTE BASOPHILS # (AUTO) 0.1 10^3/uL (0.0-0.2); ABSOLUTE EOSINOPHILS # (AUTO) 0.6 10^3/uL (0.0-0.6); ABSOLUTE LYMPHOCYTES (AUTO) 2.6 10^3/uL (0.5-4.7); ABSOLUTE MONOCYTES (AUTO) 0.4 10^3/uL (0.1-1.4); ABSOLUTE NEUT (AUTO) 3.4 10^3/uL (1.7-8.2); BASOPHILS % (AUTO) 0.9 % (0-2); EOSINOPHILS % (AUTO) 9.1 % (0-6); HEMOGLOBIN 14.8 g/dL (13.5-17.0); HGB HCT DIFFERENCE 1.4; LYMPHOCYTES % (AUTO) 36.2 % (13-45); MEAN CORPUSCULAR HEMOGLOBIN 28.8 pg (27.0-33.4); MEAN CORPUSCULAR HGB CONC 34.4 g/dL (32.0-36.0); MEAN CORPUSCULAR VOLUME 84 fl (80-97); MONOCYTES % (AUTO) 5.8 % (3-13); RED BLOOD COUNT 5.16 10^6/uL (4.35-5.55); RED CELL DISTRIBUTION WIDTH 14.5 % (11.5-14.0); WHITE BLOOD COUNT 7.1 10^3/uL (4.0-10.5)
--- NOTE | 2017-08-21 10:40 | RADIOLOGY REPORT (SQ) ---
EXAM DESCRIPTION: CT HEAD WITHOUT COMPLETED DATE/TIME: 08/21/2017 10:33 am REASON FOR STUDY: double vision COMPARISON: None. TECHNIQUE: Axial images acquired through the brain without intravenous contrast. Images reviewed wi th bone, brain and subdural windows. Images stored on PACS. All CT scanners at this facility use dose modulation, iterative reconstruction, and/or weight based d osing when appropriate to reduce radiation dose to as low as reasonably achievable (ALARA). [facility]: Dose Right [facility]: CareDose [facility]: Dose Right [facility]: Teradose 4D [facility]: [employer] RADIATION DOSE: Up-to-date CT equipment and radiation dose reduction techniques were employed. CTDIv ol: 64.6 mGy. DLP: 1163 mGy-cm. mGy. LIMITATIONS: None. FINDINGS: VENTRICLES: Normal size and contour. CEREBRUM: No masses. No hemorrhage. No midline shift. No evidence for acute infarction. Normal gra y/white matter differentiation. No areas of low density in the white matter. CEREBELLUM: No masses. No hemorrhage. No alteration of density. No evidence for acute infarction. EXTRAAXIAL SPACES: No fluid collections. No masses. ORBITS AND GLOBE: No intra- or extraconal masses. Normal contour of globe without masses. CALVARIUM: No fracture. PARANASAL SINUSES: No fluid or mucosal thickening. SOFT TISSUES: No mass or hematoma. OTHER: No other significant finding. IMPRESSION: NORMAL BRAIN CT WITHOUT CONTRAST. EVIDENCE OF ACUTE STROKE: NO. COMMENT: Quality ID # [id number]: Final reports with documentation of one or more dose reduction techniques (e.g., Automated exposure control, adjustment of the mA and/or kV according to patient size, use of iterative reconstruction technique) TECHNICAL DOCUMENTATION: JOB ID: [id number] [employer]- All Rights Reserved
[2017-08-21 11:08] LABS: ALANINE AMINOTRANSFERASE 53 U/L (21-72); ALBUMIN 4.8 g/dL (3.5-5.0); ALKALINE PHOSPHATASE 67 U/L (38-126); ANION GAP 14 (5-19); ASPARTATE AMINO TRANSFERASE 24 U/L (17-59); BILIRUBIN,DIRECT 0.3 mg/dL (0.0-0.4); BILIRUBIN,TOTAL 0.6 mg/dL (0.2-1.3); BLOOD UREA NITROGEN 15 mg/dL (7-20); CARBON DIOXIDE 25 mmol/L (22-30); CHLORIDE 104 mmol/L (98-107); CREATININE RESULT 0.88 mg/dL (0.52-1.25); GLUCOSE 99 mg/dL (75-110); POTASSIUM 4.6 mmol/L (3.6-5.0); SODIUM 142.5 mmol/L (137-145); TOTAL PROTEIN 8.1 g/dL (6.3-8.2)
--- NOTE | 2017-08-21 12:02 | ER Document Report ---
ED Eye Complaint - General Mode of Arrival: Ambulatory Information source: Patient TRAVEL OUTSIDE OF THE [place] IN LAST 30 DAYS: No - HPI Patient complains to provider of: Double vision Onset: Other - 6 months ago Associated symptoms: Other - see notes above <KAYY CUELLAR - Last Filed: 08/21/17 15:55> <SHANTI DEWITT - Last Filed: 08/21/17 16:40> - General Chief Complaint: Eye Problem Stated Complaint: CLINIC REFFERED Time Seen by Provider: 08/21/17 10:02 Notes: 27 year old male with history of hypertension presents to the ED complaining of double vision that started 6 months ago. Patient reports that his double vision is present when looking to the right and straight ahead, but not present when looking to the left. Patient saw an county historian yesterday and was told that she had retinal edema with possible optic nerve impingement. Results were sent to [facility] where the patient was referred to. Patient received a call this morning from [facility] to come to the ED for further evaluation. Patient is additionally complaining of a headache and increased pressure behind his right eye. Patient denies any difficulty with hearing, smelling, tasting, or talking. Patient denies chest pain, shortness of breath, nausea, vomiting, diarrhea, or difficulty walking. (KAYY CUELLAR) - Related Data Allergies/Adverse Reactions: No Known Allergies Allergy (Verified 08/21/17 09:38) Past Medical History - General Information source: Patient - Social History Smoking Status: Current Every Day Smoker Chew tobacco use (# tins/day): No Frequency of alcohol use: None Drug Abuse: None Family History: Arthritis, DM, Hyperlipidemia, Hypertension. denies: CAD, COPD , CVA, Malignancy, Thyroid Disfunction Patient has suicidal ideation: No Patient has homicidal ideation: No - Past Medical History Cardiac Medical History: Reports: Hx Hypertension Endocrine Medical History: Reports: Hx Diabetes Mellitus Type 1 Renal/ Medical History: Reports: Hx Kidney Stones GI Medical History: Reports: Hx Gastroesophageal Reflux Disease Musculoskeltal Medical History: Reports Hx Musculoskeletal Deformity Past Surgical History: Reports: Hx Appendectomy - Immunizations Hx Diphtheria, Pertussis, Tetanus Vaccination: Yes - unk Hx Pneumococcal Vaccination: 10/22/10 <KAYY CUELLAR - Last Filed: 08/21/17 15:55> Review of Systems - Review of Systems Constitutional: No symptoms reported EENT: See HPI, Double vision, Other - pressure behind right eye Cardiovascular: No symptoms reported. denies: Dizziness Respiratory: No symptoms reported. denies: Short of breath Gastrointestinal: No symptoms reported. denies: Diarrhea, Nausea, Vomiting Genitourinary: No symptoms reported Male Genitourinary: No symptoms reported Musculoskeletal: No symptoms reported Skin: No symptoms reported Hematologic/Lymphatic: No symptoms reported Neurological/Psychological: See HPI, Headaches -: Yes All other systems reviewed and negative <KAYY CUELLAR - Last Filed: 08/21/17 15:55> Physical Exam <KAYY CUELLAR - Last Filed: 08/21/17 15:55> <SHANTI DEWITT - Last Filed: 08/21/17 16:40> - Vital signs Vitals: Temp Pulse Resp BP Pulse Ox 98.5 F 80 16 126/72 H 97 08/21/17 09:36 08/21/17 09:36 08/21/17 09:36 08/21/17 09:36 08/21/17 09:36 - Notes Notes: GENERAL: Alert, interacts well. No acute distress. HEAD: Normocephalic, atraumatic. EYES: Pupils equal, round, and reactive to light. Extraocular movements intact. No evidence of strabismus. ENT: Oral mucosa moist, tongue midline. NECK: Full range of motion. Supple. Trachea midline. LUNGS: Clear to auscultation bilaterally, no wheezes, rales, or rhonchi. No respiratory distress. HEART: Regular rate and rhythm. No murmurs, gallops, or rubs. ABDOMEN: Soft, non-tender. Non-distended. Bowel sounds present in all 4 quadrants. EXTREMITIES: Moves all 4 extremities spontaneously. No edema, radial and dorsalis pedis pulses 2/4 bilaterally. No cyanosis. NEUROLOGICAL: Alert and oriented x3. Normal speech. Biceps and patellar DTRs 2+ bilaterally. PSYCH: Normal affect, normal mood. SKIN: Warm, dry, normal turgor. No rashes or lesions noted. (KAYY CUELLAR) Course - Laboratory Result Diagrams: 08/21/17 10:11 08/21/17 10:11 - Consults [facility] Time consulted: 15:02 Dr. Egan Time consulted: 15:47 <KAYY CUELLAR - Last Filed: 08/21/17 15:55> - Laboratory Result Diagrams: 08/21/17 10:11 08/21/17 10:11 <SHANTI DEWITT - Last Filed: 08/21/17 16:40> - Re-evaluation Re-evalutation: 08/21/17 14:46 CT scan head negative, CBC and CMP unremarkable, concern for increased intracranial pressure, possibly pseudotumor cerebri given the papilledema, diagnostic and therapeutic lumbar puncture was performed by radiology, opening pressure was 37, closing pressure is 16. Symptoms have completely resolved after draining off the fluid. 08/21/17 15:[address] Egan from [facility] neurology, agrees with starting acetazolamide, 250 mg twice a day for 1 week and if he tolerates it well increase to 500 mg twice a day. Recommends follow-up with a neurologist as an outpatient. The patient may follow up locally or with neurology at [facility]. (SHANTI DEWITT) - Vital Signs Vital signs: Temp Pulse Resp BP Pulse Ox 98.5 F 67 16 120/71 98 08/21/17 16:06 08/21/17 16:06 08/21/17 16:06 08/21/17 16:06 08/21/17 16:06 - Laboratory Laboratory results interpreted by me: 08/21/17 10:11 RDW 14.5 H Eosinophils % 9.1 H - Consults [facility] Reason for consultation: 08/21/17 15:02 [facility] was called to get a neurology consult since there is no one forest economist here. (KAYY CUELLAR) Dr. Egan Reason for consultation: 08/21/17 15:47 Dr. Egan returned the page and the patient was discussed. Agrees with starting acetazolamide, 250 mg twice a day for 1 week and if he tolerates it well increase to 500 mg twice a day. Recommends follow-up with a neurologist as an outpatient. The patient may follow up locally or with neurology at [facility]. (KAYY CUELLAR) Discharge <KAYY CUELLAR - Last Filed: 08/21/17 15:55> <SHANTI DEWITT - Last Filed: 08/21/17 16:40> - Discharge Clinical Impression: Diplopia, Papilledema associated with increased intracranial pressure, Increased intracranial pressure Condition: Stable Disposition: HOME, SELF-CARE Additional Instructions: You double vision appears to be coming from increased intracranial pressure. Today we did not find any bleeding or tumors in your brain. Your symptoms get better when we drained your spinal fluid. Your opening pressure was 37 and your closing pressure was 16. Your neurologist may want to know about this. Please start Acetazolamide 250 mg twice a day for 1 week. This can cause some numbness and tingling of the fingers and the lips. If you do not find the side effects to be too annoying after 1 week he may increase to 500 mg twice a day. It is very important that you follow-up with a neurologist as an outpatient. You may either follow up with neuro care or you may follow up with [facility] neurology, you can reach the clinic at [phone]. Prescriptions: Acetazolamide [Diamox 250 mg Tab] 250 mg PO Q12 #60 tab Scribe Attestation: 08/21/17 16:40 I personally performed the services described in the documentation, reviewed and edited the documentation which was dictated to the scribe in my presence, and it accurately records my words and actions. (SHANTI DEWITT) Scribe Documentation - Scribe Written by Jose:: Jose Wagoner, 08/21/2017 1348 acting as scribe for :: Yong <KAYY CUELLAR - Last Filed: 08/21/17 15:55>
[2017-08-21] MEDS ORDERED: LIDOCAINE 1% INJ-PF (10 MG/ML) 30 ML SDV INJ ONE (12:03)
--- NOTE | 2017-08-21 14:28 | RADIOLOGY REPORT (SQ) ---
EXAM DESCRIPTION: FLUORO/NEEDLE PLACEMENT; LUMBAR PUNCTURE COMPLETED DATE/TIME: 08/21/2017 2:15 pm REASON FOR STUDY: double vision, papilledema COMPARISON: None. FLUOROSCOPY TIME: 27 seconds. 1 images saved to PACS. TECHNIQUE: Fluoroscopic guided lumbar puncture with opening and closing pressures. LIMITATIONS: None. PROCEDURE: After written consent and assessment were obtained, the patient was brought into the fluo roscopy room and placed prone on the table. The patient's lower back was prepped in a sterile fashio n and an entry site was selected under live fluoroscopic guidance. The entry site was anesthetized wi th 1% lidocaine. The spinal needle was advanced through the skin and into the thecal sac at the leve l of L4-L5. An opening pressure of 37 water units was obtained. After approximately 20.5 ml of CSF w as drained, a closing pressure of 16 water units was obtained. The needle was removed and a sterile b andage was placed of the site. Specimens were sent to the lab for testing. A fluoroscopic spot image was saved to PACS confirming level access. FINDINGS: Clear CSF IMPRESSION: Lumbar puncture under fluoroscopy. No immediate complication. COMMENT: Patient medication list reviewed:Yes- Quality ID# [id number]:Eligible professional attests to docu menting in the medical record they obtained, updated, or reviewed the patient's current medications.. Quality ID [id number]: Final reports for procedures using fluoroscopy that document radiation exposure dixie monica, or exposure time and number of fluorographic images (if radiation exposure indices are not avail able) TECHNICAL DOCUMENTATION: JOB ID: [id number] [employer]- All Rights Reserved
[2017-08-21 14:37] LABS: GLUCOSE,CSF 69 mg/dL (40-70)
[2017-08-21 14:47] LABS: APPEARANCE ALL TUBES CLEAR
[2017-08-21 14:48] LABS: RBC DILUENT USED NONE USED; RBC DILUTION FACTOR 1; RBC SIDE 1 0; RBC SIDE 2 0; TOTAL RBC SQUARES COUNTED 225; WHITE BLOOD CELL,CSF 3 /uL (0-5)
[2017-08-21 14:49] LABS: APPEARANCE ALL TUBES CLEAR; RBC AVERAGE 1.5; RBC DILUENT USED NONE USED; RBC DILUTION FACTOR 1; RBC SIDE 1 0; RBC SIDE 2 3; TOTAL RBC SQUARES COUNTED 225
[2017-08-21 14:50] LABS: WHITE BLOOD CELL,CSF 1 /uL (0-5)
[2017-08-21 16:13] VITALS: BP 120/71
== END 2017-08-21 16:05 | disposition home or self-care (01) ==
LOC: ER 09:31
DX: H53.2 Diplopia (principal); H47.11 Papilledema associated with increased intracranial pressure; I10 Essential (primary) hypertension; F17.200 Nicotine dependence, unspecified, uncomplicated
CPT/HCPCS: 36415; 62270; 70450; 77002; 80053; 82945; 84157; 85025; 87070; 87205; 89050; 99284

== ENCOUNTER 2018-04-02 07:36 | Emergency (ER) | payer SELFPAY ==
[2018-04-02] MEDS ORDERED: NORMAL SALINE 1000 ML 1,000 ML IV ONE (07:49)
[2018-04-02] MEDS ORDERED: ONDANSETRON 4 MG TAB.RAPDIS PO ONE (07:50)
[2018-04-02 08:16] LABS: ABSOLUTE EOSINOPHILS # (AUTO) 0.6 10^3/uL (0.0-0.6); ABSOLUTE LYMPHOCYTES (AUTO) 1.4 10^3/uL (0.5-4.7); ABSOLUTE MONOCYTES (AUTO) 0.7 10^3/uL (0.1-1.4); ABSOLUTE NEUT (AUTO) 11.9 10^3/uL (1.7-8.2); BASOPHILS % (AUTO) 0.1 % (0-2); EOSINOPHILS % (AUTO) 4.3 % (0-6); HEMATOCRIT 47.1 % (37.9-51.0); LYMPHOCYTES % (AUTO) 9.3 % (13-45); MEAN CORPUSCULAR VOLUME 82 fl (80-97); MONOCYTES % (AUTO) 4.9 % (3-13); PLATELET COUNT 381 10^3/uL (150-450); RED BLOOD COUNT 5.71 10^6/uL (4.35-5.55); RED CELL DISTRIBUTION WIDTH 14.5 % (11.5-14.0); SEGMENTED NEUTROPHILS % (AUTO) 81.4 % (42-78); TOTAL CELLS COUNTED % (AUTO) 100 %; WHITE BLOOD COUNT 14.6 10^3/uL (4.0-10.5)
[2018-04-02 08:29] LABS: ALANINE AMINOTRANSFERASE 64 U/L (21-72); ALBUMIN 5.2 g/dL (3.5-5.0); ALKALINE PHOSPHATASE 81 U/L (38-126); ANION GAP 19 (5-19); ASPARTATE AMINO TRANSFERASE 37 U/L (17-59); BILIRUBIN,DIRECT 0.4 mg/dL (0.0-0.4); BILIRUBIN,TOTAL 0.9 mg/dL (0.2-1.3); BLOOD UREA NITROGEN 16 mg/dL (7-20); CALCIUM 10.7 mg/dL (8.4-10.2); CARBON DIOXIDE 16 mmol/L (22-30); CHLORIDE 109 mmol/L (98-107); POTASSIUM 4.6 mmol/L (3.6-5.0); SODIUM 144.2 mmol/L (137-145); TOTAL PROTEIN 8.8 g/dL (6.3-8.2)
[2018-04-02 08:30] LABS: GLUCOSE 141 mg/dL (75-110)
[2018-04-02] MEDS ORDERED: RINGERS SOLUTION,LACTATED 1,000 ML IV ONE (09:55)
--- NOTE | 2018-04-02 10:01 | ER Document Report ---
ED General - General Chief Complaint: Vomiting/Diarrhea Stated Complaint: VOMITING/DIARRHEA Time Seen by Provider: 04/02/18 09:48 TRAVEL OUTSIDE OF THE [place] IN LAST 30 DAYS: No - HPI Patient complains to provider of: Nausea vomiting diarrhea Notes: Patient coming in for nausea vomiting diarrhea ongoing since 3:00 this morning patient states son has similar symptoms patient states last meal was [employer] which he only ate [place] fries. Patient states multiple bouts of diarrhea no recent antibiotics. Denies any recent travel. Patient was seen upon his initial arrival was had basic labs performed along with menstruation and Zofran. Patient states no vomiting since Zofran feeling much better after IV fluids. Patient heart rate my examination seems to be decreased since his initial triage vital signs. - Related Data Allergies/Adverse Reactions: No Known Allergies Allergy (Verified 04/02/18 07:42) Past Medical History - Social History Smoking Status: Current Every Day Smoker Frequency of alcohol use: Occasional Drug Abuse: None Family History: Arthritis, DM, Hyperlipidemia, Hypertension. denies: CAD, COPD , CVA, Malignancy, Thyroid Disfunction Patient has suicidal ideation: No Patient has homicidal ideation: No - Past Medical History Cardiac Medical History: Reports: Hx Hypertension Denies: Hx Atrial Fibrillation, Hx Congestive Heart Failure, Hx Coronary Artery Disease, Hx DVT, Hx Heart Attack, Hx Hypercholesterolemia, Hx Peripheral Vascular Disease, Hx Pulmonary Embolism Pulmonary Medical History: Denies: Hx Asthma, Hx Bronchitis, Hx COPD, Hx Pneumonia Neurological Medical History: Denies: Hx Cerebrovascular Accident, Hx Migraine, Hx Seizures Endocrine Medical History: Reports: Hx Diabetes Mellitus Type 1 Renal/ Medical History: Reports: Hx Kidney Stones. Denies: Hx Benign Prostatic Hyperplasia, Hx End Stage Renal Disease, Hx Epididymitis, Hx Hemodialysis, Hx Hydrocele, Hx Peritoneal Dialysis, Hx Renal Insufficiency, Hx Testicular Torsion, Hx Varicocele Malignancy Medical History: Denies Hx Bone Cancer, Denies Hx Brain Cancer, Denies Hx Colorectal Cancer, Denies Hx Leukemia, Denies Hx Liver Cancer, Denies Hx Lung Cancer, Denies Hx Lymphoma, Denies Hx Pancreatic Cancer, Denies Hx Prostate Cancer, Denies Hx Renal (Kidney) Cancer, Denies Hx Skin Cancer, Denies Hx Testicular Cancer GI Medical History: Reports: Hx Gastroesophageal Reflux Disease. Denies: Hx Cirrhosis, Hx Crohn's Disease, Hx Diverticulitis, Hx Gastritis, Hx Hepatitis, Hx Hiatal Hernia, Hx Irritable Bowel, Hx Liver Failure, Hx Ulcer, Hx Ulcerative Colitis Musculoskeltal Medical History: Denies Hx Arthritis, Denies Hx Fibromyalgia, Denies Hx Gout, Denies Hx Multiple Sclerosis, Denies Hx Muscular Dystrophy, Denies Hx Muscle Spasm, Denies Hx Muscle Weakness, Reports Hx Musculoskeletal Deformity, Denies Hx Musculoskeletal Trauma Skin Medical History: Denies Hx Cellulitis, Denies Hx Eczema, Denies Hx MRSA, Denies Hx Psoriasis Psychiatric Medical History: Denies: Hx Anxiety, Hx Attention Deficit Hyperactivity Disorder, Hx Bipolar Disorder, Hx Borderline Personality Disorder, Hx Dementia, Hx Depression, Hx Obsessive Compulsive Disorder, Hx Personality Disorder, Hx Post Traumatic Stress Disorder, Hx Schizoaffective Disorder, Hx Schizophrenia Traumatic Medical History: Denies: Hx Fractures, Hx Gunshot Wound, Hx Liver Laceration, Hx Pneumothorax, Hx Spine Fracture, Hx Spleen Laceration/Rupture, Hx Traumatic Brain Injury Infectious Medical History: Denies: Hx C-Diff, Hx Hepatitis, Hx HIV, Hx MRSA, Hx VRE Past Surgical History: Reports: Hx Appendectomy - Immunizations Hx Diphtheria, Pertussis, Tetanus Vaccination: Yes - unk Hx Pneumococcal Vaccination: 10/22/10 Review of Systems - Review of Systems Constitutional: No symptoms reported EENT: No symptoms reported Cardiovascular: No symptoms reported Respiratory: No symptoms reported Gastrointestinal: Diarrhea, Nausea, Vomiting Genitourinary: No symptoms reported Male Genitourinary: No symptoms reported Musculoskeletal: No symptoms reported Skin: No symptoms reported Hematologic/Lymphatic: No symptoms reported Neurological/Psychological: No symptoms reported -: Yes All other systems reviewed and negative Physical Exam - Vital signs Vitals: Temp Pulse Resp BP Pulse Ox 97.3 F 114 H 20 110/86 H 97 04/02/18 07:44 04/02/18 07:44 04/02/18 07:44 04/02/18 07:44 04/02/18 07:44 Interpretation: Normal - General General appearance: Appears well, Alert - HEENT Head: Normocephalic, Atraumatic Eyes: Normal Pupils: PERRL - Respiratory Respiratory status: No respiratory distress Chest status: Nontender Breath sounds: Normal Chest palpation: Normal - Cardiovascular Rhythm: Regular Heart sounds: Normal auscultation Murmur: No - Abdominal Inspection: Normal Distension: No distension Bowel sounds: Normal Tenderness: Nontender Organomegaly: No organomegaly - Back Back: Normal, Nontender - Extremities General upper extremity: Normal inspection, Nontender, Normal color, Normal ROM , Normal temperature General lower extremity: Normal inspection, Nontender, Normal color, Normal ROM , Normal temperature, Normal weight bearing. No: Demi's sign - Neurological Neuro grossly intact: Yes Cognition: Normal Orientation: AAOx4 [place] Coma Scale Eye Opening: Spontaneous Juan C Coma Scale Verbal: Oriented [place] Coma Scale Motor: Obeys Commands Juan C Coma Scale Total: 15 Speech: Normal Motor strength normal: LUE, RUE, LLE, RLE Sensory: Normal - Psychological Associated symptoms: Normal affect, Normal mood - Skin Skin Temperature: Warm Skin Moisture: Dry Skin Color: Normal Course - Re-evaluation Re-evalutation: 04/02/18 10:01 Patient laboratory studies initially decreased bicarb consistent with his nausea and vomiting. Patient's abdominal examination otherwise benign. Patient asking for ice chips here in triage. Will give patient another bag of LR will check a lipase as well as this is normal more likely patient will be discharged home 04/02/18 11:07 Vital signs have improved. The patient presents with abdominal pain without signs of peritonitis or other life-threatening or serious etiology. The patient appears stable for discharge and has been instructed to return immediately if the symptoms worsen in any way, or in 8-12hr if not improved for re-evaluation. The patient has been instructed to return if the symptoms worsen or change in any way. - Vital Signs Vital signs: Temp Pulse Resp BP Pulse Ox 98.1 F 91 18 124/76 100 04/02/18 11:00 04/02/18 11:00 04/02/18 11:00 04/02/18 11:00 04/02/18 11:00 - Laboratory Result Diagrams: 04/02/18 08:05 04/02/18 08:05 Laboratory results interpreted by me: 04/02/18 04/02/18 04/02/18 08:05 08:05 09:42 WBC 14.6 H RBC 5.71 H RDW 14.5 H Seg Neutrophils % 81.4 H Lymphocytes % 9.3 L Absolute Neutrophils 11.9 H Chloride 109 H Carbon Dioxide 16 L Glucose 141 H Calcium 10.7 H Total Protein 8.8 H Albumin 5.2 H Urine Protein 30 H Discharge - Discharge Clinical Impression: Nausea vomiting and diarrhea Condition: Good Disposition: HOME, SELF-CARE Instructions: Gastroenteritis (adult) ([facility]), Vomiting ([facility]) Additional Instructions: Laboratory studies today show signs of dehydration. Please make sure you are drinking plenty of fluids with electrolytes. Return to ER symptoms worsen follow-up with your primary care physician. Prescriptions: Dicyclomine HCl [Bentyl 20 mg Tablet] 20 mg PO QID #30 tablet Ondansetron [Zofran Odt] 4 mg PO Q6 PRN #30 tab.rapdis PRN Reason: For Nausea/Vomiting Promethazine HCl [Phenergan 25 mg Tablet] 25 mg PO Q6 #30 tablet Forms: Return to Work
[2018-04-02 10:20] LABS: APPEARANCE,URINE SLIGHTLY-CLOUDY; BILIRUBIN,URINE NEGATIVE (NEGATIVE); GLUCOSE, URINE NEGATIVE (NEGATIVE); KETONES,URINE NEGATIVE (NEGATIVE); LEUKOCYTE ESTERASE,URINE NEGATIVE (NEGATIVE); NITRITE,URINE NEGATIVE (NEGATIVE); PROTEIN,URINE 30 mg/dL (NEGATIVE); UROBILINOGEN,URINE NEGATIVE mg/dL (<2.0)
[2018-04-02 10:21] LABS: COLOR,URINE DARK YELLOW
[2018-04-02] MEDS ORDERED: ONDANSETRON HCL 8 MG TABLET PO ONE (10:55)
[2018-04-02] MEDS ORDERED: DICYCLOMINE HCL 20 MG TABLET PO ONE (10:55)
[2018-04-02 11:05] VITALS: BP 124/76
== END 2018-04-02 11:11 | disposition home or self-care (01) ==
LOC: ER 07:36
DX: R11.2 Nausea with vomiting, unspecified (principal); R19.7 Diarrhea, unspecified; F17.200 Nicotine dependence, unspecified, uncomplicated; I10 Essential (primary) hypertension; E10.9 Type 1 diabetes mellitus without complications
CPT/HCPCS: 99284; 96360; 96361; 36415; 83690; 85025; 80053; 81001; J3490; S0119 ×2; J7030; J7120

== ENCOUNTER 2018-06-10 17:33 | Emergency (ER) | payer SELFPAY ==
[2018-06-10 17:54] VITALS: BP 128/85
--- NOTE | 2018-06-10 19:11 | ER Document Report ---
ED Skin Rash/Insect Bite/Abscs - General Chief Complaint: Rash Stated Complaint: SKIN PROBLEM Time Seen by Provider: 06/10/18 18:47 Notes: Patient is a 28-year-old male complaining of a rash to his mid back 1 day. Patient reports a slight tingle to the area prior to the rash erupting but denies pain. Patient feels otherwise well. No other rash. Patient does admit to a history of chickenpox as a child. TRAVEL OUTSIDE OF THE [place] IN LAST 30 DAYS: No - HPI Patient complains to provider of: Skin rash/lesion Onset/Duration: Sudden Quality of pain: No pain Skin Character: Vesicular Skin Temperature: Warm Identify cause: Yes - Related Data Allergies/Adverse Reactions: No Known Allergies Allergy (Verified 04/02/18 07:42) Past Medical History - General Information source: Patient - Social History Smoking Status: Never Smoker Frequency of alcohol use: None Drug Abuse: None Lives with: Family Family History: Arthritis, DM, Hyperlipidemia, Hypertension. denies: CAD, COPD , CVA, Malignancy, Thyroid Disfunction - Past Medical History Cardiac Medical History: Reports: Hx Hypertension Denies: Hx Atrial Fibrillation, Hx Congestive Heart Failure, Hx Coronary Artery Disease, Hx DVT, Hx Heart Attack, Hx Hypercholesterolemia, Hx Peripheral Vascular Disease, Hx Pulmonary Embolism Pulmonary Medical History: Denies: Hx Asthma, Hx Bronchitis, Hx COPD, Hx Pneumonia Neurological Medical History: Denies: Hx Cerebrovascular Accident, Hx Migraine, Hx Seizures Endocrine Medical History: Reports: Hx Diabetes Mellitus Type 1 Renal/ Medical History: Reports: Hx Kidney Stones. Denies: Hx Benign Prostatic Hyperplasia, Hx End Stage Renal Disease, Hx Epididymitis, Hx Hemodialysis, Hx Hydrocele, Hx Peritoneal Dialysis, Hx Renal Insufficiency, Hx Testicular Torsion, Hx Varicocele Malignancy Medical History: Denies Hx Bone Cancer, Denies Hx Brain Cancer, Denies Hx Colorectal Cancer, Denies Hx Leukemia, Denies Hx Liver Cancer, Denies Hx Lung Cancer, Denies Hx Lymphoma, Denies Hx Pancreatic Cancer, Denies Hx Prostate Cancer, Denies Hx Renal (Kidney) Cancer, Denies Hx Skin Cancer, Denies Hx Testicular Cancer GI Medical History: Reports: Hx Gastroesophageal Reflux Disease. Denies: Hx Cirrhosis, Hx Crohn's Disease, Hx Diverticulitis, Hx Gastritis, Hx Hepatitis, Hx Hiatal Hernia, Hx Irritable Bowel, Hx Liver Failure, Hx Ulcer, Hx Ulcerative Colitis Musculoskeletal Medical History: Denies Hx Arthritis, Denies Hx Fibromyalgia, Denies Hx Gout, Denies Hx Multiple Sclerosis, Denies Hx Muscular Dystrophy, Denies Hx Muscle Spasm, Denies Hx Muscle Weakness, Reports Hx Musculoskeletal Deformity, Denies Hx Musculoskeletal Trauma Skin Medical History: Denies Hx Cellulitis, Denies Hx Eczema, Denies Hx MRSA, Denies Hx Psoriasis Psychiatric Medical History: Denies: Hx Anxiety, Hx Attention Deficit Hyperactivity Disorder, Hx Bipolar Disorder, Hx Borderline Personality Disorder, Hx Dementia, Hx Depression, Hx Obsessive Compulsive Disorder, Hx Personality Disorder, Hx Post Traumatic Stress Disorder, Hx Schizoaffective Disorder, Hx Schizophrenia Traumatic Medical History: Denies: Hx Fractures, Hx Gunshot Wound, Hx Liver Laceration, Hx Pneumothorax, Hx Spine Fracture, Hx Spleen Laceration/Rupture, Hx Traumatic Brain Injury Infectious Medical History: Denies: Hx C-Diff, Hx Hepatitis, Hx HIV, Hx MRSA, Hx VRE Past Surgical History: Reports: Hx Appendectomy - Immunizations Hx Diphtheria, Pertussis, Tetanus Vaccination: Yes - unk Hx Pneumococcal Vaccination: 10/22/10 Review of Systems - Review of Systems Constitutional: No symptoms reported EENT: No symptoms reported Cardiovascular: No symptoms reported Respiratory: No symptoms reported Gastrointestinal: No symptoms reported Genitourinary: No symptoms reported Male Genitourinary: No symptoms reported Musculoskeletal: No symptoms reported Skin: See HPI Hematologic/Lymphatic: No symptoms reported Neurological/Psychological: No symptoms reported Physical Exam - Vital signs Vitals: Temp Pulse Resp BP Pulse Ox 99.0 F 103 H 18 128/85 H 98 06/10/18 17:49 06/10/18 17:49 06/10/18 17:49 06/10/18 17:49 06/10/18 17:49 Interpretation: Normal - General General appearance: Appears well, Alert - HEENT Head: Normocephalic, Atraumatic Eyes: Normal Pupils: PERRL - Respiratory Respiratory status: No respiratory distress Chest status: Nontender Breath sounds: Normal Chest palpation: Normal - Cardiovascular Rhythm: Regular Heart sounds: Normal auscultation Murmur: No - Abdominal Inspection: Normal Distension: No distension Bowel sounds: Normal Tenderness: Nontender Organomegaly: No organomegaly - Back Back: Normal, Nontender - Extremities General upper extremity: Normal inspection, Nontender, Normal color, Normal ROM , Normal temperature General lower extremity: Normal inspection, Nontender, Normal color, Normal ROM , Normal temperature, Normal weight bearing. No: Demi's sign - Neurological Neuro grossly intact: Yes Cognition: Normal Orientation: AAOx4 Juan C Coma Scale Eye Opening: Spontaneous [place] Coma Scale Verbal: Oriented [place] Coma Scale Motor: Obeys Commands [place] Coma Scale Total: 15 Speech: Normal Motor strength normal: LUE, RUE, LLE, RLE Sensory: Normal - Psychological Associated symptoms: Normal affect, Normal mood - Skin Skin Temperature: Warm Skin Moisture: Dry Skin Color: Normal Location of irregularity: Back - Clustered vesicular rash to mid low back. Course - Re-evaluation Re-evalutation: 06/10/18 19:23 Rash is suspicious for herpes zoster although the rash crosses the midpoint slightly. Patient is nontoxic. Consult to Dr. Leung who evaluated the patient and agrees to treat the rash as herpes zoster. Home care, primary care follow-up in ED return precautions were discussed with the patient. Patient is agreeable with plan and stable for discharge - Vital Signs Vital signs: Temp Pulse Resp BP Pulse Ox 99.0 F 103 H 18 128/85 H 98 06/10/18 17:49 06/10/18 17:49 06/10/18 17:49 06/10/18 17:49 06/10/18 17:49 Discharge - Discharge Clinical Impression: Shingles Qualifiers: Herpes zoster complications: without complications Qualified Code(s): B02.9 - Zoster without complications Condition: Stable Disposition: HOME, SELF-CARE Instructions: Shingles ([facility]), Acyclovir ([facility]) Additional Instructions: You have a rash that is suspicious for a shingles outbreak Shingles is caused by the same virus that causes chickenpox. After someone has chickenpox, the virus sometimes hides out, "asleep" in the body. Years later, it can "wake up" and cause shingles. It is not possible to "catch" shingles from someone who has the rash. But if you have never had chickenpox or gotten the chickenpox vaccine, it is possible to "catch" the virus and then get sick with chickenpox. Shingles and chickenpox are caused by the same virus. Keep the parts of your skin that have a rash clean and dry. Do not use creams or gels Take the antiviral medication as prescribed Follow-up with your primary care Prescriptions: Valacyclovir HCl [Valtrex] 1,000 mg PO TID #30 tablet Valacyclovir HCl [Valtrex 500 Mg Tablet] 1,000 mg PO TID #48 tablet Forms: Parent Work Note
== END 2018-06-10 19:23 | disposition home or self-care (01) ==
LOC: ER 17:33
DX: B02.9 Zoster without complications (principal); E10.9 Type 1 diabetes mellitus without complications; I10 Essential (primary) hypertension
CPT/HCPCS: 99282

== ENCOUNTER 2018-09-28 17:59 | Emergency (ER) | payer SELFPAY ==
[2018-09-28] MEDS ORDERED: OXYCODONE-ACETAMINOPHEN 5-325 MG TABLET PO ONE (18:31)
[2018-09-28] MEDS ORDERED: LIDOCAINE 5% (700 MG) TRANSDERMAL ADH..PATCH TP ONE (18:31)
--- NOTE | 2018-09-28 18:34 | ER Document Report ---
HPI - HPI Patient complains to provider of: Low back pain Time Seen by Provider: 09/28/18 18:24 Onset: Yesterday Onset/Duration: Gradual Quality of pain: Sharp Pain Level: 5 Context: She presents complaining of right sided lower back pain that started yesterday. Patient denies any injury. Patient denies any dysuria, urinary retention or incontinence. Associated Symptoms: Other - Right lower back pain. denies: Fever, Nausea, Vomiting Exacerbated by: Movement Relieved by: Denies Similar symptoms previously: No Recently seen / treated by doctor: No - ROS ROS below otherwise negative: Yes Systems Reviewed and Negative: Yes All other systems reviewed and negative - CONSTITUTIONAL Constitutional: DENIES: Fever, Chills - NEURO Neurology: DENIES: Weakness - GASTROINTESTINAL Gastrointestinal: DENIES: Nausea - URINARY Urinary: DENIES: Dysuria, Urgency, Frequency - MUSCULOSKELETAL Musculoskeletal: REPORTS: Back Pain. DENIES: Extremity pain - DERM Skin Color: Normal Skin Problems: None Past Medical History - General Information source: Patient - Social History Smoking Status: Current Every Day Smoker Smoking Education Provided: Yes Frequency of alcohol use: None Drug Abuse: None Occupation: car pick up driver Lives with: Spouse/Significant other Family History: Arthritis, DM, Hyperlipidemia, Hypertension. denies: CAD, COPD , CVA, Malignancy, Thyroid Disfunction - Medical History Medical History: Negative GI Medical History: Reports: Hx Gastroesophageal Reflux Disease Past Surgical History: Reports: Hx Appendectomy - Immunizations Hx Diphtheria, Pertussis, Tetanus Vaccination: Yes - unk Hx Pneumococcal Vaccination: 10/22/10 Vertical Provider Document - CONSTITUTIONAL Agree With Documented VS: Yes Exam Limitations: No Limitations General Appearance: WD/WN, No Apparent Distress - INFECTION CONTROL TRAVEL OUTSIDE OF THE [place] IN LAST 30 DAYS: No - HEENT HEENT: Atraumatic, Normocephalic - NECK Neck: Normal Inspection, Supple - RESPIRATORY Respiratory: Breath Sounds Normal, No Respiratory Distress - CARDIOVASCULAR Cardiovascular: Regular Rate, Regular Rhythm - BACK Back: Abnormal Inspection - Right lower lumbar paraspinal tenderness, no midline tenderness step-off or deformity. negative: CVA Tenderness-Right, CVA Tenderness-Left - MUSCULOSKELETAL/EXTREMETIES Musculoskeletal/Extremeties: MAEW, FROM - NEURO Level of Consciousness: Awake, Alert, Appropriate Motor/Sensory: No Motor Deficit - DERM Integumentary: Warm, Dry, No Rash Course - Re-evaluation Re-evalutation: 09/28/18 18:32 The patient presents with low back pain without signs of spinal cord compression , cauda equina syndrome, infection, aneurysm, or other serious etiology. The patient is neurologically intact. Given the extremely risk of these diagnoses further testing and evaluation for these possibilities does not appear to be indicated at this time. Patient has been instructed to return if the symptoms worsen or change in any way. - Vital Signs Vital signs: Temp Pulse Resp BP Pulse Ox 98.7 F 93 18 135/83 H 96 09/28/18 18:01 09/28/18 18:01 09/28/18 18:01 09/28/18 18:01 09/28/18 18:01 Discharge - Discharge Clinical Impression: Low back pain Qualifiers: Chronicity: unspecified Back pain laterality: right Sciatica presence: without sciatica Qualified Code(s): M54.5 - Low back pain Condition: Stable Disposition: HOME, SELF-CARE Instructions: Ice Packs ([facility]), Low Back Pain ([facility]) Additional Instructions: Return immediately for any new or worsening symptoms Followup with your primary care provider, call tomorrow to make a followup appointment Prescriptions: Cyclobenzaprine HCl [Flexeril 10 Mg Tablet] 10 mg PO TID #15 tablet Naproxen [Naprosyn 250 Nmg Tablet] 1 tab PO BID #14 tablet Forms: Smoking Cessation Education Referrals: [facility] [Provider Group] - Follow up as needed
[2018-09-28 19:16] VITALS: BP 130/78
== END 2018-09-28 19:10 | disposition home or self-care (01) ==
LOC: ER 17:59
DX: M54.5 Low back pain (principal); F17.200 Nicotine dependence, unspecified, uncomplicated
CPT/HCPCS: 99283

== ENCOUNTER 2018-10-22 11:24 | Emergency (ER) | payer SELFPAY ==
--- NOTE | 2018-10-22 12:17 | ER Document Report ---
ED Headache - General Chief Complaint: Skin Problem Stated Complaint: HEADACHE Time Seen by Provider: 10/22/18 11:49 Mode of Arrival: Ambulatory Information source: Patient Notes: 28-year-old male presents to ED for complaint of lump to the back of his head. He states that the lump is been there for 3 days and he has had a headache the same amount of times. Patient is alert oriented respirations regular and unlabored pupils equal and react to light speaks in full sentences and walks with a even steady gait. There are no lumps to the back of his head there are no bumps there are no red areas swollen areas or tender areas. Patient reaches back and shows where he thinks he has a lump and there is a symmetrical lump on the other side of his head in the same place that is part of his head. I have showed patient that there is no lump on one side of his head. 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 TRAVEL OUTSIDE OF THE [place] IN LAST 30 DAYS: No - HPI Patient complains to provider of: Headache Onset: Other - 3 days Onset was: Gradual, Other - No injuries Timing: Still present Quality of pain: Achy Severity: Moderate Pain Level: 3 Associated symptoms: denies: Confusion, Dizzy, Fainting, Fever, Lightheaded, Motion sickness, Motor/sensory loss to arm, Nausea/vomiting, Neck pain, Stiff neck, Tingling/numb sensation, Trouble walking Exacerbated by: Other - None Similar symptoms previously: No Recently seen / treated by doctor: No - Related Data Allergies/Adverse Reactions: No Known Allergies Allergy (Verified 09/28/18 18:00) Past Medical History - General Information source: Patient - Social History Smoking Status: Current Every Day Smoker Cigarette use (# per day): Yes - Pack per day Chew tobacco use (# tins/day): No Smoking Education Provided: Yes - 4 minutes Frequency of alcohol use: Occasional Drug Abuse: None Occupation: Cemented experienced truck driver Lives with: Spouse/Significant other Family History: Arthritis, DM, Hyperlipidemia, Hypertension. denies: CAD, COPD, CVA, Malignancy, Thyroid Disfunction Patient has suicidal ideation: No Patient has homicidal ideation: No Pulmonary Medical History: Reports: None EENT Medical History: Reports: None Neurological Medical History: Reports: None Endocrine Medical History: Reports: None Malignancy Medical History: Reports None Musculoskeletal Medical History: Reports Hx Musculoskeletal Trauma - Fractured patella Skin Medical History: Reports None Psychiatric Medical History: Reports: None Traumatic Medical History: Reports: Hx Fractures - Patella Infectious Medical History: Reports: None Past Surgical History: Reports: Hx Appendectomy, Hx Orthopedic Surgery - Fractured patella, Other - Spinal tap in February - Immunizations Hx Diphtheria, Pertussis, Tetanus Vaccination: Yes - unk Hx Pneumococcal Vaccination: 10/22/10 Review of Systems - Review of Systems Constitutional: No symptoms reported EENT: No symptoms reported Cardiovascular: No symptoms reported. denies: Palpitations, Orthopnea, Dyspnea, Syncope, Dizziness, Lightheaded Respiratory: No symptoms reported Gastrointestinal: No symptoms reported. denies: Nausea, Vomiting Genitourinary: No symptoms reported Male Genitourinary: No symptoms reported Musculoskeletal: No symptoms reported Skin: No symptoms reported Hematologic/Lymphatic: No symptoms reported Neurological/Psychological: Headaches. denies: Confusion, Anxiety, Hallucinations, Sensory change, Weakness, Gait changes, Loss of power, Paralysis, Seizure, Lost consciousness, Numbness, Suicidal ideation, Tingling, Tremor -: Yes All other systems reviewed and negative Physical Exam - Vital signs Vitals: Temp Pulse Resp BP Pulse Ox 98.5 F 97 18 135/80 H 95 10/22/18 11:38 10/22/18 11:38 10/22/18 11:38 10/22/18 11:38 10/22/18 11:38 Interpretation: Normal - General General appearance: Appears well, Alert - HEENT Head: Normocephalic, Atraumatic Eyes: Normal Pupils: PERRL - Respiratory Respiratory status: No respiratory distress Chest status: Nontender Breath sounds: Normal Chest palpation: Normal - Cardiovascular Rhythm: Regular Heart sounds: Normal auscultation Murmur: No - Abdominal Inspection: Normal Distension: No distension Bowel sounds: Normal Tenderness: Nontender Organomegaly: No organomegaly - Back Back: Normal, Nontender - Extremities General upper extremity: Normal inspection, Nontender, Normal color, Normal ROM, Normal temperature General lower extremity: Normal inspection, Nontender, Normal color, Normal ROM, Normal temperature, Normal weight bearing. No: Demi's sign - Neurological Neuro grossly intact: Yes Cognition: Normal Orientation: AAOx4 [place] Coma Scale Eye Opening: Spontaneous Juan C Coma Scale Verbal: Oriented Juan C Coma Scale Motor: Obeys Commands [place] Coma Scale Total: 15 Speech: Normal Cranial nerves: Normal Cerebellar coordination: Normal Motor strength normal: LUE, RUE, LLE, RLE Sensory: Normal Biceps - Reflex grade: 2 = Normal Triceps - Reflex grade: 2 = Normal Brachioradialis - Reflex grade: 2 = Normal Knee - Reflex grade: 2 = Normal Ankle - Reflex grade: 2 = Normal - Psychological Associated symptoms: Normal affect, Normal mood - Skin Skin Temperature: Warm Skin Moisture: Dry Skin Color: Normal Irregularity with: negative: Swelling, Tenderness, Warmth Course - Re-evaluation Re-evalutation: 10/22/18 12:29 Patient has a negative assessment. Patient is alert oriented, pupils equal and react to light, speaking in full sentences, walks with a even steady gait. Patient was discharged home with prescription for Compazine to take with Benadryl and ibuprofen for his headache. There are no lumps bumps or anything noted on the back of his head. After performing a Medical Screening Examination, I estimate there is LOW risk for ACUTE GLAUCOMA, TEMPORAL ARTERITIS, MENINGITIS, INCRANIAL HEMORRHAGE, or ISCHEMIC STROKE thus I consider the discharge disposition reasonable. I have reevaluated this patient multiple times and no significant life threatening changes are noted. The patient and I have discussed the diagnosis and risks, and we agree with discharging home with close follow-up with the understanding that symptoms and presentations can change. We also discussed returning to the Emergency Department immediately if new or worsening symptoms occur. We have discussed the symptoms which are most concerning (e.g., changing or worsening symptoms, new numbness or weakness, vomiting, fever) that necessitate immediate return. - Vital Signs Vital signs: Temp Pulse Resp BP Pulse Ox 98.5 F 97 18 135/80 H 95 10/22/18 11:38 10/22/18 11:38 10/22/18 11:38 10/22/18 11:38 10/22/18 11:38 Discharge - Discharge Clinical Impression: Headache Qualifiers: Headache type: unspecified Headache chronicity pattern: unspecified pattern Intractability: not intractable Qualified Code(s): R51 - Headache Condition: Stable Disposition: HOME, SELF-CARE Instructions: Family Physicians / Practices Additional Instructions: HEADACHE: The physician does not feel that the headache you are experiencing has a serious underlying cause. Most headaches are due to emotional stress, with resultant muscle tension (tension headache). Occasionally, headaches are secondary to changes in the blood vessels of the scalp (vascular headache and migraine headache). Sometimes, a headache is the first symptom of another developing illness, such as a viral infection. You have no evidence of stroke, bleeding, meningitis, or other serious cause of your headache. The treatment of headaches varies with the severity and cause of the pain. Not all headaches need pain shots. In fact, there is evidence that using narcotics for headaches may make them worse in the long run. The physician will determine the therapy that's in your best interest. If you develop a fever, if the headache is different from any you've previously experienced, or if the headache progressively worsens, then call your physician at once or go to the emergency room. USE OF DIPHENHYDRAMINE: Diphenhydramine (Benadryl) is an antihistamine and has been recommended to help treat your headache and to prevent side effects of other medications used to treat headaches. The medication can be repeated four times daily. Age Elixir (12.5 mg/tsp) 25 mg pill adult 1-2 tabs Antihistamines may cause drowsiness, especially with the first dose. Do not operate machinery or drive while under the effects of the medication. Do not combine the medication with alcohol, or with any other medication without talking to your doctor. COMPAZINE FOR HEADACHE: You have received prescription for headaches of Compazine. This treatment is dramatically successful in relieving the headache in about 50 percent of cases. When it works, it provides a rapid method of eliminating the headache without resorting to narcotics (and the problems associated with them). Most patients still feel fully alert after the Compazine, but others may be slightly drowsy. It's best not to drive or work with machinery for six to eight hours. Do not take alcohol or other medication unless you discuss it with the doctor. If you develop tightness and spasms in your muscles, especially the neck and tongue, you should return. This is a side effect which can be treated. Ibuprofen Ibuprofen is an excellent, safe drug for pain control. In addition, it has potent antiinflammatory effects which are beneficial, especially in the treatment of injuries, arthritis, or tendonitis. It's best to take ibuprofen with food. Persons with ulcer disease or allergy to aspirin should notify their physician of this before taking ibuprofen. Take the medication exactly as prescribed. Don't take additional doses unless instructed to do so by your doctor. If you develop wheezing, shortness of breath, hives, faintness, stomach pain, vomiting, or dark black stools, return for re-evaluation at once. FOLLOW-UP CARE: If you have been referred to a physician for follow-up care, call the physicians office for an appointment as you were instructed or within the next two days. If you experience worsening or a significant change in your symptoms, notify the physician immediately or return to the Emergency Department at any time for re-evaluation. Prescriptions: Prochlorperazine Maleate [Compazine 10 mg Tablet] 10 mg PO ASDIR PRN #10 tablet PRN Reason: Forms: Elevated Blood Pressure, Smoking Cessation Education
[2018-10-22 12:18] VITALS: BP 135/80
== END 2018-10-22 12:18 | disposition home or self-care (01) ==
LOC: ER 11:24
DX: R51 Headache (principal); F17.210 Nicotine dependence, cigarettes, uncomplicated; Z71.6 Tobacco abuse counseling
CPT/HCPCS: 99283

== ENCOUNTER 2018-11-03 10:36 | Emergency (ER) | payer SELFPAY ==
--- NOTE | 2018-11-03 11:38 | RADIOLOGY REPORT (SQ) ---
EXAM DESCRIPTION: FOOT LEFT COMPLETE COMPLETED DATE/TIME: 11/03/2018 11:30 am REASON FOR STUDY: left heel/arch pain COMPARISON: None. NUMBER OF VIEWS: Three views. TECHNIQUE: AP, lateral and oblique radiographic images acquired of the left foot. LIMITATIONS: None. FINDINGS: MINERALIZATION: Normal. BONES: No acute fracture or dislocation. No worrisome bone lesions. JOINTS: No effusions. SOFT TISSUES: No soft tissue swelling. No foreign body. OTHER: No other significant finding. IMPRESSION: NEGATIVE STUDY OF THE LEFT FOOT. NO RADIOGRAPHIC EVIDENCE OF ACUTE INJURY. TECHNICAL DOCUMENTATION: JOB ID: [id number] [employer]- All Rights Reserved Reading location - IP/workstation name: [email or web address]
--- NOTE | 2018-11-03 12:04 | ER Document Report ---
HPI - HPI Time Seen by Provider: 11/03/18 11:17 Pain Level: 3 Notes: Patient is an otherwise healthy 28-year-old male presenting with left plantar foot pain. Patient reports the pain is been ongoing for approximately 1 week. Patient reports he has had a similar episode in the past however that episode resolved on its own. Patient reports point tenderness to the bottom of his foot and denies any injury. - MUSCULOSKELETAL Musculoskeletal: REPORTS: Extremity pain - L foot Past Medical History - General Information source: Patient - Social History Smoking Status: Never Smoker Chew tobacco use (# tins/day): No Frequency of alcohol use: None Drug Abuse: None Family History: Arthritis, DM, Hyperlipidemia, Hypertension. denies: CAD, COPD, CVA, Malignancy, Thyroid Disfunction Patient has suicidal ideation: No Patient has homicidal ideation: No - Past Medical History Cardiac Medical History: Reports: Hx Hypertension Denies: Hx Atrial Fibrillation, Hx Congestive Heart Failure, Hx Coronary Artery Disease, Hx DVT, Hx Heart Attack, Hx Hypercholesterolemia, Hx Peripheral Vascular Disease, Hx Pulmonary Embolism Pulmonary Medical History: Denies: Hx Asthma, Hx Bronchitis, Hx COPD, Hx Pneumonia Neurological Medical History: Denies: Hx Cerebrovascular Accident, Hx Migraine, Hx Seizures Endocrine Medical History: Reports: Hx Diabetes Mellitus Type 1 Renal/ Medical History: Reports: Hx Kidney Stones. Denies: Hx Benign Pros tatic Hyperplasia, Hx End Stage Renal Disease, Hx Epididymitis, Hx Hemodialysis, Hx Hydrocele, Hx Peritoneal Dialysis, Hx Renal Insufficiency, Hx Testicular Torsion, Hx Varicocele Malignancy Medical History: Denies Hx Bone Cancer, Denies Hx Brain Cancer, Denies Hx Colorectal Cancer, Denies Hx Leukemia, Denies Hx Liver Cancer, Denies Hx Lung Cancer, Denies Hx Lymphoma, Denies Hx Pancreatic Cancer, Denies Hx Prostate Cancer, Denies Hx Renal (Kidney) Cancer, Denies Hx Skin Cancer, Denies Hx Testicular Cancer GI Medical History: Reports: Hx Gastroesophageal Reflux Disease. Denies: Hx Cirrhosis, Hx Crohn's Disease, Hx Diverticulitis, Hx Gastritis, Hx Hepatitis, Hx Hiatal Hernia, Hx Irritable Bowel, Hx Liver Failure, Hx Ulcer, Hx Ulcerative Colitis Musculoskeletal Medical History: Denies Hx Arthritis, Denies Hx Fibromyalgia, Denies Hx Gout, Denies Hx Multiple Sclerosis, Denies Hx Muscular Dystrophy, Denies Hx Muscle Spasm, Denies Hx Muscle Weakness, Reports Hx Musculoskeletal Deformity, Reports Hx Musculoskeletal Trauma - Fractured patella Skin Medical History: Denies Hx Cellulitis, Denies Hx Eczema, Denies Hx MRSA, Denies Hx Psoriasis Psychiatric Medical History: Denies: Hx Anxiety, Hx Attention Deficit Hyperactivity Disorder, Hx Bipolar Disorder, Hx Borderline Personality Disorder, Hx Dementia, Hx Depression, Hx Obsessive Compulsive Disorder, Hx Personality Disorder, Hx Post Traumatic Stress Disorder, Hx Schizoaffective Disorder, Hx Schizophrenia Traumatic Medical History: Reports: Hx Fractures - Patella. Denies: Hx Gunshot Wound, Hx Liver Laceration, Hx Pneumothorax, Hx Spine Fracture, Hx Spleen Laceration/Rupture, Hx Traumatic Brain Injury Infectious Medical History: Denies: Hx C-Diff, Hx Hepatitis, Hx HIV, Hx MRSA, Hx VRE Past Surgical History: Reports: Hx Appendectomy, Hx Orthopedic Surgery - Fractured patella, Other - Spinal tap in February - Immunizations Hx Diphtheria, Pertussis, Tetanus Vaccination: Yes - unk Hx Pneumococcal Vaccination: 10/22/10 Vertical Provider Document - CONSTITUTIONAL Notes: PHYSICAL EXAMINATION: GENERAL: Well-appearing, well-nourished and in no acute distress. HEAD: Atraumatic, normocephalic. EYES: Pupils equal round extraocular movements intact, conjunctiva are normal. ENT: Nares patent NECK: Normal range of motion LUNGS: No respiratory distress Musculoskeletal: Normal range of motion, left foot appears normal, no swelling, erythema or ecchymosis noted normal cap refill. Normal dorsalis pedis pulse. NEUROLOGICAL: Normal speech, normal gait. PSYCH: Normal mood, normal affect. SKIN: Warm, Dry, normal turgor, no rashes or lesions noted. - INFECTION CONTROL TRAVEL OUTSIDE OF THE [place] IN LAST 30 DAYS: No Course - Re-evaluation Re-evalutation: X-rays negative for any acute fracture or dislocation. Likely plantar fasciitis. Patient given information regarding plantar fasciitis and discharged home in stable condition. Patient will be taking ibuprofen 600 mg every 6 hours for pain. - Vital Signs Vital signs: Temp Pulse Resp BP Pulse Ox 98.6 F 97 12 119/82 95 11/03/18 10:53 11/03/18 10:53 11/03/18 10:53 11/03/18 10:53 11/03/18 10:53 Discharge - Discharge Clinical Impression: Plantar fasciitis of left foot Condition: Stable Disposition: HOME, SELF-CARE Additional Instructions: Plantar Fasciitis or Heel Spur Plantar fasciitis is an inflammation of a ligament on the underside of the foot. It can be caused by injury, overuse such as running, or poorly fitting shoes. There may be a bone spur on the heel if inflammation has persisted a long time. Plantar fasciitis is treated with stretching exercises and antiinflammatory medicine. More severe cases may require injection of cortisone. It may take several weeks to get better. If nothing gives relief, an operation to remove the heel spur may help. Call or return if there is redness, increasing pain, swelling, fever, or any other new symptoms. Take medication as prescribed. If this does not improve over the next several weeks, call orthopedics and schedule an appointment with them. Prescriptions: RX: Ibuprofen [Motrin 800 mg Tablet] 800 mg PO Q8H PRN #40 tab PRN Reason:
[2018-11-03 12:20] VITALS: BP 121/79
== END 2018-11-03 12:20 | disposition home or self-care (01) ==
LOC: ER 10:36
DX: M72.2 Plantar fascial fibromatosis (principal); M79.672 Pain in left foot; I10 Essential (primary) hypertension; E10.9 Type 1 diabetes mellitus without complications
CPT/HCPCS: 99283

== ENCOUNTER 2019-02-10 13:21 | Emergency (ER) | payer SELFPAY ==
[2019-02-10 13:26] VITALS: BP 145/87
[2019-02-10] MEDS ORDERED: FLUCONAZOLE 100 MG TABLET PO ONE (14:13)
--- NOTE | 2019-02-10 14:16 | ER Document Report ---
HPI - HPI Time Seen by Provider: 02/10/19 14:04 Onset/Duration: Better Quality of pain: Burning Pain Level: 3 Context: Patient complains of peeling skin to the penis that he is noticed over the past 3 days. Patient states that in the shower he washed off the peeling skin. Patient states that his was treated for a yeast infection and he suspects the same for himself. Patient denies any drainage or discharge from the penis. Associated Symptoms: Other - Peeling skin to the penis Exacerbated by: Denies Relieved by: Denies Similar symptoms previously: No Recently seen / treated by doctor: No - ROS Systems Reviewed and Negative: Yes All other systems reviewed and negative - CONSTITUTIONAL Constitutional: DENIES: Fever, Chills - EENT EENT: DENIES: Sore Throat - URINARY Urinary: DENIES: Dysuria, Urgency, Frequency - MUSCULOSKELETAL Musculoskeletal: DENIES: Extremity pain - DERM Notes: Peeling skin to the penis Past Medical History - General Information source: Patient - Social History Smoking Status: Current Every Day Smoker Chew tobacco use (# tins/day): No Smoking Education Provided: Yes Frequency of alcohol use: Occasional Drug Abuse: None Family History: Arthritis, DM, Hyperlipidemia, Hypertension. denies: CAD, COPD, CVA, Malignancy, Thyroid Disfunction Patient has suicidal ideation: No Patient has homicidal ideation: No Renal/ Medical History: Reports: Hx Kidney Stones GI Medical History: Reports: Hx Gastroesophageal Reflux Disease Musculoskeletal Medical History: Reports Hx Musculoskeletal Deformity, Reports Hx Musculoskeletal Trauma - Fractured patella Traumatic Medical History: Reports: Hx Fractures - Patella Past Surgical History: Reports: Hx Appendectomy, Hx Orthopedic Surgery - Fractured patella, Other - Spinal tap in February - Immunizations Hx Diphtheria, Pertussis, Tetanus Vaccination: Yes - unk Hx Pneumococcal Vaccination: 10/22/10 Vertical Provider Document - CONSTITUTIONAL Agree With Documented VS: Yes Exam Limitations: No Limitations General Appearance: WD/WN, No Apparent Distress - INFECTION CONTROL TRAVEL OUTSIDE OF THE [place] IN LAST 30 DAYS: No - HEENT HEENT: Atraumatic, Normocephalic - NECK Neck: Normal Inspection - RESPIRATORY Respiratory: Breath Sounds Normal, No Respiratory Distress - CARDIOVASCULAR Cardiovascular: Regular Rate, Regular Rhythm - GI/ABDOMEN Gastrointestinal: Abdomen Soft - REPRODUCTIVE Male Genitalia: Normal Inspection Notes: No peeling skin noted to the glans. No inguinal lymphadenopathy, no scrotal tenderness, normal cremasteric reflex. VIKKI Molina as standby. - BACK Back: Normal Inspection - MUSCULOSKELETAL/EXTREMETIES Musculoskeletal/Extremeties: ESHA EGAN - NEURO Level of Consciousness: Awake, Alert, Appropriate Motor/Sensory: No Motor Deficit - DERM Integumentary: Warm, Dry, No Rash Course - Re-evaluation Re-evalutation: 02/10/19 14:15 Patient was offered STD testing but declined stating that he only wanted to be treated for a yeast infection as his was diagnosed with the yeast infection and he had peeling skin that he noticed to the penis this morning during his shower. - Vital Signs Vital signs: Temp Pulse Resp BP Pulse Ox 98.1 F 106 H 16 145/87 H 96 02/10/19 13:26 02/10/19 13:26 02/10/19 13:26 02/10/19 13:26 02/10/19 13:26 Discharge - Discharge Clinical Impression: concern about yeast infection, Normal exam Condition: Stable Disposition: HOME, SELF-CARE Instructions: Normal Exam and Workup ([facility]) Additional Instructions: Return immediately for any new or worsening symptoms Followup with your primary care provider, call tomorrow to make a followup appointment Forms: Smoking Cessation Education [facility] - Follow up as needed
== END 2019-02-10 14:21 | disposition home or self-care (01) ==
LOC: ER 13:21
DX: Z03.89 Encounter for observation for other suspected diseases and conditions ruled out (principal)
CPT/HCPCS: 99282

== ENCOUNTER 2019-02-21 07:22 | Emergency (ER) | payer SELFPAY ==
[2019-02-21] MEDS ORDERED: DIAZEPAM 5 MG TABLET PO ONE (07:58)
--- NOTE | 2019-02-21 08:08 | ER Document Report ---
ED General - General Chief Complaint: Anxiety Stated Complaint: ANXIETY Time Seen by Provider: 02/21/19 07:54 Mode of Arrival: Ambulatory Information source: Patient, Relative, [facility] Records Notes: 28-year-old male with hypertension, GERD, recent diagnosis of type 2 diabetes presents with concern for confusion, anxiousness. Patient was seen in the emergency department 3 days prior to arrival for chest pain and anxiety. At that time he had a cardiac rule out with 2- troponins but was found to have diabetes and started on metformin. Patient's first day back at work was this morning. 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 Patient currently complaining of headache, nausea. Denies any chest pain, belly pain TRAVEL OUTSIDE OF THE [place] IN LAST 30 DAYS: No - HPI Onset: Other Onset/Duration: Sudden Quality of pain: No pain Severity: None Pain Level: Denies Associated symptoms: Headache, Nausea, Shortness of breath. denies: Chest pain, Nonproductive cough, Productive cough Exacerbated by: Denies Relieved by: Denies Similar symptoms previously: Yes Recently seen / treated by doctor: Yes - Related Data Allergies/Adverse Reactions: No Known Allergies Allergy (Verified 02/21/19 07:27) Past Medical History - General Information source: Patient, Relative, [facility] Records - Social History Smoking Status: Current Every Day Smoker Cigarette use (# per day): Yes - 15 Smoking Education Provided: Yes - Smoking cessation counseling was provided for 4 minutes at the bedside Frequency of alcohol use: None Drug Abuse: None Lives with: Spouse/Significant other Family History: Arthritis, DM, Hyperlipidemia, Hypertension. denies: CAD, COPD, CVA, Malignancy, Thyroid Disfunction - Past Medical History Cardiac Medical History: Reports: Hx Hypertension Denies: Hx Atrial Fibrillation, Hx Congestive Heart Failure, Hx Coronary Artery Disease, Hx DVT, Hx Heart Attack, Hx Hypercholesterolemia, Hx Peripheral Vascular Disease, Hx Pulmonary Embolism Pulmonary Medical History: Denies: Hx Asthma, Hx Bronchitis, Hx COPD, Hx Pneumonia Neurological Medical History: Denies: Hx Cerebrovascular Accident, Hx Migraine, Hx Seizures Endocrine Medical History: Reports: Hx Diabetes Mellitus Type 1 Renal/ Medical History: Reports: Hx Kidney Stones. Denies: Hx Benign Prostatic Hyperplasia, Hx End Stage Renal Disease, Hx Epididymitis, Hx Hemodialysis, Hx Hydrocele, Hx Peritoneal Dialysis, Hx Renal Insufficiency, Hx Testicular Torsion, Hx Varicocele Malignancy Medical History: Denies Hx Bone Cancer, Denies Hx Brain Cancer, Denies Hx Colorectal Cancer, Denies Hx Leukemia, Denies Hx Liver Cancer, Denies Hx Lung Cancer, Denies Hx Lymphoma, Denies Hx Pancreatic Cancer, Denies Hx Prostate Cancer, Denies Hx Renal (Kidney) Cancer, Denies Hx Skin Cancer, Denies Hx Testicular Cancer GI Medical History: Reports: Hx Gastroesophageal Reflux Disease. Denies: Hx Cirrhosis, Hx Crohn's Disease, Hx Diverticulitis, Hx Gastritis, Hx Hepatitis, Hx Hiatal Hernia, Hx Irritable Bowel, Hx Liver Failure, Hx Ulcer, Hx Ulcerative Colitis Musculoskeletal Medical History: Denies Hx Arthritis, Denies Hx Fibromyalgia, Denies Hx Gout, Denies Hx Multiple Sclerosis, Denies Hx Muscular Dystrophy, Denies Hx Muscle Spasm, Denies Hx Muscle Weakness, Reports Hx Musculoskeletal Deformity, Reports Hx Musculoskeletal Trauma - Fractured patella Skin Medical History: Denies Hx Cellulitis, Denies Hx Eczema, Denies Hx MRSA, Denies Hx Psoriasis Psychiatric Medical History: Denies: Hx Anxiety, Hx Attention Deficit Hyperactivity Disorder, Hx Bipolar Disorder, Hx Borderline Personality Disorder, Hx Dementia, Hx Depression, Hx Obsessive Compulsive Disorder, Hx Personality Disorder, Hx Post Traumatic Stress Disorder, Hx Schizoaffective Disorder, Hx Schizophrenia Traumatic Medical History: Reports: Hx Fractures - Patella. Denies: Hx Gunshot Wound, Hx Liver Laceration, Hx Pneumothorax, Hx Spine Fracture, Hx Spleen Laceration/Rupture, Hx Traumatic Brain Injury Infectious Medical History: Denies: Hx C-Diff, Hx Hepatitis, Hx HIV, Hx MRSA, Hx VRE Past Surgical History: Reports: Hx Appendectomy, Hx Orthopedic Surgery - Fractured patella, Other - Spinal tap in February - Immunizations Hx Diphtheria, Pertussis, Tetanus Vaccination: Yes - unk Hx Pneumococcal Vaccination: 10/22/10 Review of Systems - Review of Systems Notes: REVIEW OF SYSTEMS: CONSTITUTIONAL : Denies fever, chills, or sweats. Denies recent illness. Denies weight loss, recent hospitalizations. EENT: Denies visual changes, eye pain. Denies sore throat, oral lesions, difficulty swallowing. CARDIOVASCULAR: Denies chest pain. Denies lower extremity edema. RESPIRATORY: Denies cough. Denies shortness of breath, wheezing. GASTROINTESTINAL: Denies abdominal pain or distention. Denies vomiting, or diarrhea. Denies blood in vomitus, stools, or per rectum. Denies black, tarry stools. Denies constipation. GENITOURINARY: Denies difficulty urinating, painful urination, frequency, blood in urine, testicular pain or penile discharge. MUSCULOSKELETAL: Denies back or neck pain or stiffness. Denies joint pain or swelling. SKIN: Denies rash, lesions or sores. HEMATOLOGIC : Denies easy bruising or bleeding. LYMPHATIC: Denies swollen glands. NEUROLOGICAL: Denies confusion or altered mental status. Denies loss of consciousness. Denies dizziness or lightheadedness. Denies weakness or paralysis. Denies problems difficulty with ambulation, slurred speech. Denies sensory loss, numbness, or tingling. Denies seizures. PSYCHIATRIC: + anxiety or stress. Denies depression, suicidal ideation, or Physical Exam - Vital signs Vitals: Temp Pulse Resp BP Pulse Ox 97.9 F 94 18 135/84 H 95 02/21/19 07:26 02/21/19 07:26 02/21/19 07:26 02/21/19 07:26 02/21/19 07:26 - Notes Notes: PHYSICAL EXAMINATION: GENERAL: Well-appearing, well-nourished and in no acute distress. HEAD: Atraumatic, normocephalic. EYES: Pupils equal round and reactive to light, extraocular movements intact, sclera anicteric, conjunctiva are normal. ENT: Nares patent, oropharynx clear without exudates. Moist mucous membranes. NECK: Normal range of motion, supple without lymphadenopathy LUNGS: Breath sounds clear to auscultation bilaterally and equal. No wheezes rales or rhonchi. HEART: Regular rate and rhythm without murmurs ABDOMEN: Soft, nontender, nondistended abdomen. No guarding, no rebound. No masses appreciated. Musculoskeletal: Normal range of motion, no pitting or edema. No cyanosis. NEUROLOGICAL:Mental status; alert and oriented x3. Cranial nerves II through XII intact. Sensation intact to sharp/dull differentiation in all extremities. Motor; normal tone. No abnormal movements appreciated. No pronator drift. Strength tested and 5/5 in bilateral wrist flexion/extension, elbow flexion/extension, shoulder abduction, straight leg raise, knee flexion/ex tension, ankle dorsiflexion/plantar flexion. Patient ambulates with a steady gait. Coordination; no ataxia. Finger to nose and heel to draper testing intact bilaterally. Reflexes; brachial radialis, biceps, and patellar reflexes within normal limits and symmetric bilaterally. Babinski with downgoing toes bilaterally. NIH 0 PSYCH: Normal mood, normal affect. SKIN: Warm, Dry, normal turgor, no rashes or lesions noted. Course - Re-evaluation Re-evalutation: 02/21/19 13:43 Laboratory 02/21/19 02/21/19 08:19 08:19 Sodium 140.0 Potassium 4.5 Chloride 101 Carbon Dioxide 28 Anion Gap 11 BUN 12 Creatinine 0.85 Est GFR ( Amer) > 60 Est GFR (Non-Af Amer) > 60 Glucose 127 H Calcium 10.6 H Magnesium 1.9 Urine Opiates Screen NEGATIVE Urine Methadone Screen NEGATIVE Ur Barbiturates Screen NEGATIVE Ur Phencyclidine Scrn NEGATIVE Ur Amphetamines Screen NEGATIVE U Benzodiazepines Scrn NEGATIVE Urine Cocaine Screen NEGATIVE U Marijuana (THC) Screen NEGATIVE Head CT 02/21/19 07:54 IMPRESSION: No acute intracranial pathology. EVIDENCE OF ACUTE STROKE: NO. Temp Pulse Resp BP Pulse Ox 97.9 F 81 18 132/82 H 98 02/21/19 07:26 02/21/19 09:59 02/21/19 09:59 02/21/19 09:59 02/21/19 09:59 28-year-old male presents with concern for confusion, anxiety. Patient was seen here 2 days prior to arrival and had a cardiac work-up which revealed that the patient had new onset diabetes. reports that the patient has been working 2 jobs has been exhausted and under extreme stress recently. Vital signs reviewed and within normal limits upon arrival. Patient does not appear toxic or dehydrated. He does appear anxious but not dehydrated. NIH was performed and 0. No other significant findings on physical exam. Previous medical records and nursing notes reviewed. CT of the head was obtained and showed no acute intracranial pathology. BMP within normal limits, urine drug screen within normal limits. Patient did receive IV fluids, Valium and on reevaluation states that he is feeling much better. Patient was evaluated and treated as appropriate for the patient's presenting symptoms and complaint, with consideration of any critical or life threatening conditions that may be associated with their obtained history and exam as noted above. All results were discussed with patient and his who is at the bedside. Patient provided the opportunity to ask questions, and express concerns. Patient was educated on treatments based on their presumed diagnosis as noted above. At this time we will discharge the patient with return precautions and follow-up recommendations. Verbal discharge instructions given a the bedside. Medication warnings reviewed. Patient is in agreement with this plan and has verbalized understanding of return precautions. After careful consideration I feel that that patient can be safely discharged from the emergency department, they were advised to followup with a primary care physician in 2-3 days. Dictation on this chart was performed using voice recognition software and may result in unintended grammatical, spelling, syntax or errors. - Vital Signs Vital signs: Temp Pulse Resp BP Pulse Ox 97.9 F 81 18 132/82 H 98 02/21/19 07:26 02/21/19 09:59 02/21/19 09:59 02/21/19 09:59 02/21/19 09:59 - Laboratory Result Diagrams: 02/21/19 08:19 Laboratory results interpreted by me: 02/21/19 08:19 Glucose 127 H Calcium 10.6 H - Diagnostic Test Radiology reviewed: Image reviewed, Reports reviewed Discharge - Discharge Clinical Impression: Transient confusion, Anxiety, Palpitations Condition: Good Disposition: HOME, SELF-CARE Instructions: Altered Mental Status ([facility]), Anxiety ([facility]), Palpitations (Irregular or Rapid Heartrate) ([facility]) Additional Instructions: Follow up with your [id number] hours for further care or return to the ED IMMEDIATELY if symptoms worsen or you have any concerns. If you cannot afford to follow up with your primary care physician a list of low cost clinics have been provided at the end of your discharge papers as well. Most prescribed medications have multiple side effects. The safest thing to do is when filling your prescription speak to your pharmacist regarding possible interactions with your normal home medications and over the counter medications such as Ibuprofen, Tylenol, Benadryl. If you experience any symptoms that cause you discomfort or concern you should discontinue the medication immediately and return to the emergency room or call your primary care physician. Forms: Elevated Blood Pressure, Smoking Cessation Education, Parent Work Note, Return to Work ED NIH Stroke Scale - NIH Stroke Scale *: 1. NIH scale should be completed with appropriate accompanying assessment tools. *: 2. The NIH should reflect what the patient is capable of doing and should not be coached by the clinician. 1a. Level of Consciousness: 0=Alert;keenly responsive -: 1=Drowsy -: 2=Obtunded -: 3=Coma/unresponsive or reflex to noxious stimuli. 1a. Responses: 0 1b. Orientation Questions: a. What month is it? -: b. How old are you? -: 0=Answers both questions correctly. -: 1=Answers one question correctly or patient is intubated or has orotracheal trauma. -: 2=Answers neither question correctly. 1b. Responses: 0 1c. Response to commands: a. Open and close eyes? -: b. [employer] and release hand? -: Credit is given despite weakness. Demonstration of task is permitted. Substitute command if hands cannot be used. -: 0=Performs both tasks correctly -: 1=Performs one task correctly -: 2=Performs neither task correctly 1c. Responses: 0 2. Gaze: Establish eye contact and instruct patient to "Follow my finger" -: 0=Normal -: 1=Partial gaze palsy. Gaze is abnormal in one or both eyes, but where forced deviation or total gaze paresis is not present. -: 2=Forced deviation or total gaze paresis. 2. Responses: 0 3. Visual Dillon: Sees fingers in all four quadrants. -: 0=No visual loss. -: 1=Partial hemianopsia. -: 2=Complete hemianopsia. -: 3=Bilateral hemianopsia (including Cortical blindness) 3. Responses: 0 4. Facial Movement: Instruct patient to: -: a. Show me your teeth -: b. Raise your eyebrows -: c. Close your eyes -: d. Smile -: 0=Normal symmetrical movement -: 1=Minor paralysis (flattened nasolabial fold, asymmetry on smiling). -: 2=Partial paralysis (total or near total paralysis of lower face). -: 3=Complete paralysis of upper and lower face 4. Responses: 0 5. Motor functions (left arm): Alternate sides and extend each arm with palms down (90 degrees if sitting or 45 degrees for supine). -: 0=No drift;limb holds for full 10 seconds. -: 1=Drift; limb holds but drifts down before full 10 seconds, but does not hit bed. -: 2=Some effort against gravity; limb cannot get to or maintain position. -: 3=No effort against gravity; limb falls. -: 4=No movement. -: UN=Amputation, joint fusion, explain in comments. 5. Responses (left arm): 0 5. Motor Functions (right arm): Alternate sides and extend each arm with palms down (90 degrees if sitting or 45 degrees for supine). -: 0=No drift;limb holds for full 10 seconds. -: 1=Drift; limb holds but drifts down before full 10 seconds, but does not hit bed. -: 2=Some effort against gravity; limb cannot get to or maintain position. -: 3=No effort against gravity; limb falls. -: 4=No movement. -: UN=Amputation, joint fusion, explain in comments. 5. Responses (right arm): 0 6. Motor Functions (left leg): With patient lying supine, alternate sides and extend each leg (30 degrees always while supine). -: 0=No drift, leg holds position for full 5 seconds -: 1=Drift; leg falls before full 5 seconds but does not hit bed. -: 2=Some effort against gravity, leg falls to bed but some effort against gravity. -: 3=No effort against gravity, leg falls to bed immediately. -: 4=No movement. -: UN=Amputation, joint fusion; explain in comments. 6. Responses (left leg): 0 6. Motor Functions (right leg): With patient lying supine, alternate sides and extend each leg (30 degrees always while supine). -: 0=No drift, leg holds position for full 5 seconds -: 1=Drift; leg falls before full 5 seconds but does not hit bed. -: 2=Some effort against gravity, leg falls to bed but some effort against gravity. -: 3=No effort against gravity, leg falls to bed immediately. -: 4=No movement. -: UN=Amputation, joint fusion; explain in comments. 6. Responses (right leg): 0 7. Limb Ataxia: With eyes open instruct patient to: -: a. "Touch your finger to your nose". -: b. "Touch your heel to your draper" -: 0=Absent -: 1=Present in one limb. -: 2=Present in two limbs. -: UN=Amputation or joint fusion; explain in comments. 7. Responses: 0 8. Sensory: Test sensation using pinprick or noxious stimuli. Test as many body parts as possible. -: 0=Normal;no sensory loss -: 1=Mile to moderate sensory loss (patient feels pin prick but is less sharp on affected side). -: 2=Severe or total sensory loss. 8. Responses: 0 9. Best Language: Instruct patient to: -: a. "Describe what you see in this picture." -: b. "Name the items in this picture." -: c. "Read these sentences." -: 0=No aphasia, normal -: 1=Mild to moderate aphasia. -: 2=Severe aphasia -: 3=Mute, global aphasia, no usable speech or auditory comprehension. 9. Responses: 0 10. Articulation, Dysarthia: Instruct patient to: -: "Read these words" or "Repeat these words" -: 0=Normal -: 1=Mild to moderate; patient may slur some words but can be understood without difficulty. -: 2=Severe; patients speech so slurred as to be unintelligible in the absence of dysphasia. -: UN=Intubated or other physical barrier, explain in comments. 10. Responses: 0 11. Extinction or inattention: 0=No abnormality -: 1= Visual, tactile, auditory, spatial, or personal inattention or extinction to bilateral simulation in one or the sensory modalities. -: 2=Profound pina-inattention or pina-inattention to more than one modality; does not recognize own hand. 11. Responses: 0 Total Score: 0
--- NOTE | 2019-02-21 08:30 | RADIOLOGY REPORT (SQ) ---
EXAM DESCRIPTION: CT HEAD WITHOUT COMPLETED DATE/TIME: 02/21/2019 8:10 am REASON FOR STUDY: confusion COMPARISON: 08/21/2017 TECHNIQUE: Axial images acquired through the brain without intravenous contrast. Images reviewed wi th bone, brain and subdural windows. Additional sagittal and coronal reconstructions were generated. Images stored on PACS. All CT scanners at this facility use dose modulation, iterative reconstruction, and/or weight based d osing when appropriate to reduce radiation dose to as low as reasonably achievable (ALARA). [facility]: Dose Right [facility]: CareDose [facility]: Dose Right [facility]: Teradose 4D [facility]: [employer] RADIATION DOSE: CT Rad equipment meets quality standard of care and radiation dose reduction techniq ues were employed. CTDIvol: 53.2 mGy. DLP: 991 mGy-cm. mGy. LIMITATIONS: None. FINDINGS: VENTRICLES: Normal size and contour. CEREBRUM: No masses. No hemorrhage. No midline shift. No evidence for acute infarction. Normal gra y/white matter differentiation. No areas of low density in the white matter. CEREBELLUM: No masses. No hemorrhage. No alteration of density. No evidence for acute infarction. EXTRAAXIAL SPACES: No fluid collections. No masses. ORBITS AND GLOBE: No intra- or extraconal masses. Normal contour of globe without masses. CALVARIUM: No fracture. PARANASAL SINUSES: No fluid or mucosal thickening. SOFT TISSUES: No mass or hematoma. OTHER: No other significant finding. IMPRESSION: No acute intracranial pathology. EVIDENCE OF ACUTE STROKE: NO. COMMENT: Quality ID # [id number]: Final reports with documentation of one or more dose reduction techniques (e.g., Automated exposure control, adjustment of the mA and/or kV according to patient size, use of iterative reconstruction technique) TECHNICAL DOCUMENTATION: JOB ID: [id number] [employer]- All Rights Reserved Reading location - IP/workstation name: [email or web address]
[2019-02-21 08:52] LABS: ANION GAP 11 (5-19); BLOOD UREA NITROGEN 12 mg/dL (7-20); CALCIUM 10.6 mg/dL (8.4-10.2); CARBON DIOXIDE 28 mmol/L (22-30); CHLORIDE 101 mmol/L (98-107); GLUCOSE 127 mg/dL (75-110); POTASSIUM 4.5 mmol/L (3.6-5.0)
[2019-02-21 09:18] LABS: URINE AMPHETAMINES SCREEN NEGATIVE; URINE BARBITURATES SCREEN NEGATIVE; URINE BENZODIAZEPINES SCREEN NEGATIVE; URINE COCAINE SCREEN NEGATIVE; URINE METHADONE SCREEN NEGATIVE; URINE PHENCYCLIDINE SCREEN NEGATIVE
[2019-02-21 09:24] LABS: URINE MARIJUANA (THC) SCREEN NEGATIVE
[2019-02-21 10:00] VITALS: BP 132/82
== END 2019-02-21 10:01 | disposition home or self-care (01) ==
LOC: ER 07:22
DX: R41.0 Disorientation, unspecified (principal); R00.2 Palpitations; F41.9 Anxiety disorder, unspecified; R11.0 Nausea; R06.02 Shortness of breath; R51 Headache; F17.210 Nicotine dependence, cigarettes, uncomplicated; I10 Essential (primary) hypertension; E11.9 Type 2 diabetes mellitus without complications; K21.9 Gastro-esophageal reflux disease without esophagitis; Z79.84 Long term (current) use of oral hypoglycemic drugs; Z87.442 Personal history of urinary calculi
CPT/HCPCS: 36415; 70450; 80048; 80307; 83735; 99284; 99406

== ENCOUNTER 2020-07-14 06:56 | Emergency (ER) | payer SELFPAY ==
[2020-07-14] MEDS ORDERED: NORMAL SALINE 1000 ML 1,000 ML IV ONE ×3 (08:16→11:00)
--- NOTE | 2020-07-14 08:31 | ER Document Report ---
ED Dizziness/Weakness - General Chief Complaint: Dizziness Stated Complaint: DIZZINESS Time Seen by Provider: 07/14/20 08:01 Mode of Arrival: Ambulatory Information source: Patient TRAVEL OUTSIDE OF THE [place] IN LAST 30 DAYS: No - HPI Notes: Patient states he feels weak and has had some occasional dizziness. He also states that he is very thirsty. This is been going on for approximately 1 week. He states that he was diagnosed as a type II diabetic over a year ago. He states he has not taken any medicine for it in over a year because it was too ex pensive. He says he believes he was on metformin. He states he is concerned because he has been drinking so much and feeling weak. The weakness is constant. Is mild to moderate. Is worse with exertion and better with rest. It radiates throughout his body. No cough cold or congestion. No vomiting or diarrhea. No trouble with urination. - Related Data Allergies/Adverse Reactions: No Known Allergies Allergy (Verified 02/21/19 07:27) Past Medical History - General Information source: Patient - Social History Smoking Status: Never Smoker Chew tobacco use (# tins/day): No Frequency of alcohol use: Occasional Drug Abuse: None Family History: Arthritis, DM, Hyperlipidemia, Hypertension. denies: CAD, COPD, CVA, Malignancy, Thyroid Disfunction Patient has homicidal ideation: No - Past Medical History Cardiac Medical History: Reports: Hx Hypertension Denies: Hx Atrial Fibrillation, Hx Congestive Heart Failure, Hx Coronary Artery Disease, Hx DVT, Hx Heart Attack, Hx Hypercholesterolemia, Hx Peripheral Vascular Disease, Hx Pulmonary Embolism Pulmonary Medical History: Denies: Hx Asthma, Hx Bronchitis, Hx COPD, Hx Pneumonia Neurological Medical History: Denies: Hx Cerebrovascular Accident, Hx Migraine, Hx Seizures Endocrine Medical History: Reports: Hx Diabetes Mellitus Type 1, Hx Diabetes Mellitus Type 2 Renal/ Medical History: Reports: Hx Kidney Stones. Denies: Hx Benign Prostatic Hyperplasia, Hx End Stage Renal Disease, Hx Epididymitis, Hx Hemodialysis, Hx Hydrocele, Hx Peritoneal Dialysis, Hx Renal Insufficiency, Hx Testicular Torsion, Hx Varicocele Malignancy Medical History: Denies Hx Bone Cancer, Denies Hx Brain Cancer, De nies Hx Colorectal Cancer, Denies Hx Leukemia, Denies Hx Liver Cancer, Denies Hx Lung Cancer, Denies Hx Lymphoma, Denies Hx Pancreatic Cancer, Denies Hx Prostate Cancer, Denies Hx Renal (Kidney) Cancer, Denies Hx Skin Cancer, Denies Hx Testicular Cancer GI Medical History: Reports: Hx Gastroesophageal Reflux Disease. Denies: Hx Cirrhosis, Hx Crohn's Disease, Hx Diverticulitis, Hx Gastritis, Hx Hepatitis, Hx Hiatal Hernia, Hx Irritable Bowel, Hx Liver Failure, Hx Ulcer, Hx Ulcerative Colitis Musculoskeletal Medical History: Denies Hx Arthritis, Denies Hx Fibromyalgia, Denies Hx Gout, Denies Hx Multiple Sclerosis, Denies Hx Muscular Dystrophy, Denies Hx Muscle Spasm, Denies Hx Muscle Weakness, Reports Hx Musculoskeletal Deformity, Reports Hx Musculoskeletal Trauma - Fractured patella Skin Medical History: Denies Hx Cellulitis, Denies Hx Eczema, Denies Hx MRSA, Denies Hx Psoriasis Psychiatric Medical History: Denies: Hx Anxiety, Hx Attention Deficit Hyperactivity Disorder, Hx Bipolar D isorder, Hx Borderline Personality Disorder, Hx Dementia, Hx Depression, Hx Obsessive Compulsive Disorder, Hx Personality Disorder, Hx Post Traumatic Stress Disorder, Hx Schizoaffective Disorder, Hx Schizophrenia Traumatic Medical History: Reports: Hx Fractures - Patella. Denies: Hx Gunshot Wound, Hx Liver Laceration, Hx Pneumothorax, Hx Spine Fracture, Hx Spleen Laceration/Rupture, Hx Traumatic Brain Injury Infectious Medical History: Denies: Hx C-Diff, Hx Hepatitis, Hx HIV, Hx MRSA, Hx VRE Past Surgical History: Reports: Hx Appendectomy, Hx Orthopedic Surgery - Fractured patella, Other - Spinal tap in February - Immunizations Hx Diphtheria, Pertussis, Tetanus Vaccination: Yes - unk Hx Pneumococcal Vaccination: 10/22/10 Review of Systems - Review of Systems Constitutional: Malaise, Weakness. denies: Chills Cardiovascular: denies: Chest pain, Palpitations Respiratory: denies: Cough, Short of breath -: Yes All other systems reviewed and negative Physical Exam - Vital signs Vitals: Temp Pulse Resp BP Pulse Ox 97.9 F 113 H 20 142/98 H 96 07/14/20 07:00 07/14/20 07:00 07/14/20 07:00 07/14/20 07:00 07/14/20 07:00 Interpretation: Tachycardic - General General appearance: Appears well, Alert - HEENT Head: Normocephalic, Atraumatic Eyes: Normal Pupils: PERRL - Respiratory Respiratory status: No respiratory distress Chest status: Nontender Breath sounds: Normal Chest palpation: Normal - Cardiovascular Rhythm: Tachycardia Heart sounds: Normal auscultation Murmur: No - Abdominal Inspection: Normal Distension: No distension Bowel sounds: Normal Tenderness: Nontender Organomegaly: No organomegaly - Back Back: Normal, Nontender - Extremities General upper extremity: Normal inspection, Nontender, Normal color, Normal ROM, Normal temperature General lower extremity: Normal inspection, Nontender, Normal color, Normal ROM, Normal temperature, Normal weight bearing. No: Demi's sign - Neurological Neuro grossly intact: Yes Cognition: Normal Orientation: AAOx4 Eunice Coma Scale Eye Opening: Spontaneous Juan C Coma Scale Verbal: Oriented Eunice Coma Scale Motor: Obeys Commands Juan C Coma Scale Total: 15 Speech: Normal Motor strength normal: LUE, RUE, LLE, RLE Sensory: Normal - Psychological Associated symptoms: Normal affect, Normal mood - Skin Skin Temperature: Warm Skin Moisture: Dry Skin Color: Normal Course - Re-evaluation Re-evalutation: 07/14/20 11:39 Patient presents with frequent urination and states that he has not taken his metformin in over a year. His blood sugar was elevated but there is no evidence of acidosis. His vital signs are stable. His blood sugar has been significantly decreased here after 3 L of fluid and 2 doses of insulin. I will restart him on his metformin and refer him to the [facility]. I have educat ed him thoroughly about the need to control his blood sugar and the ramifications if he does not. - Vital Signs Vital signs: Temp Pulse Resp BP Pulse Ox 97.9 F 113 H 20 142/98 H 96 07/14/20 07:00 07/14/20 07:00 07/14/20 07:00 07/14/20 07:00 07/14/20 07:00 - Laboratory Result Diagrams: 07/14/20 08:57 07/14/20 08:57 Laboratory results interpreted by me: 07/14/20 07/14/20 07/14/20 08:57 08:57 08:57 Eos % (Auto) 9.3 H Absolute Eos (auto) 0.9 H Sodium 131.6 L Chloride 93 L Glucose 513 H* POC Glucose Calcium 10.7 H AST 63 H ALT 118 H Creatine Kinase 368 H Total Protein 8.6 H Albumin 5.1 H Urine Glucose (UA) >=500 H Urine Blood SMALL H 07/14/20 07/14/20 09:45 11:02 Eos % (Auto) Absolute Eos (auto) Sodium Chloride Glucose POC Glucose 471 H* 340 H Calcium AST ALT Creatine Kinase Total Protein Albumin Urine Glucose (UA) Urine Blood Discharge - Discharge Clinical Impression: Hyperglycemia Uncontrolled diabetes mellitus Qualifiers: Diabetes mellitus type: type 2 Glycemic state: with hyperglycemia Qualified Code(s): E11.65 - Type 2 diabetes mellitus with hyperglycemia Condition: Stable Disposition: HOME, SELF-CARE Instructions: Diabetes ([facility]) Additional Instructions: Please follow up with a primary provider as soon as possible. Please limit your carbohydrate intake. If you are not able to see a primary provider in the next week then please return to the emergency department for a recheck Prescriptions: Metformin HCl [Glucophage 500 mg Tablet] 500 mg PO BID #60 tablet Forms: Return to Work Referrals: [facility] [place] [Provider Group] - Follow up as needed
[2020-07-14 09:11] LABS: ABSOLUTE BASOPHILS # (AUTO) 0.1 10^3/uL (0.0-0.2); ABSOLUTE EOSINOPHILS # (AUTO) 0.9 10^3/uL (0.0-0.6); ABSOLUTE LYMPHOCYTES (AUTO) 3.6 10^3/uL (0.5-4.7); ABSOLUTE MONOCYTES (AUTO) 0.7 10^3/uL (0.1-1.4); ABSOLUTE NEUT (AUTO) 4.1 10^3/uL (1.7-8.2); BASOPHILS % (AUTO) 1.2 % (0-2); EOSINOPHILS % (AUTO) 9.3 % (0-6); HEMATOCRIT 44.6 % (37.9-51.0); HEMOGLOBIN 15.4 g/dL (13.5-17.0); LYMPHOCYTES % (AUTO) 37.9 % (13-45); MEAN CORPUSCULAR HEMOGLOBIN 28.4 pg (27.0-33.4); MEAN CORPUSCULAR HGB CONC 34.7 g/dL (32.0-36.0); MEAN CORPUSCULAR VOLUME 82 fl (80-97); MONOCYTES % (AUTO) 7.8 % (3-13); PLATELET COUNT 387 10^3/uL (150-450); RED BLOOD COUNT 5.43 10^6/uL (4.35-5.55); RED CELL DISTRIBUTION WIDTH 13.7 % (11.5-14.0); SEGMENTED NEUTROPHILS % (AUTO) 43.8 % (42-78); TOTAL CELLS COUNTED % (AUTO) 100 %; WHITE BLOOD COUNT 9.4 10^3/uL (4.0-10.5)
[2020-07-14 09:33] LABS: ALBUMIN 5.1 g/dL (3.5-5.0); ALKALINE PHOSPHATASE 104 U/L (38-126); ANION GAP 15 (5-19); APPEARANCE,URINE CLEAR; ASPARTATE AMINO TRANSFERASE 63 U/L (17-59); BILIRUBIN,DIRECT 0.3 mg/dL (0.0-0.4); BILIRUBIN,TOTAL 0.7 mg/dL (0.2-1.3); BILIRUBIN,URINE NEGATIVE (NEGATIVE); BLOOD UREA NITROGEN 15 mg/dL (7-20); CALCIUM 10.7 mg/dL (8.4-10.2); CARBON DIOXIDE 24 mmol/L (22-30); CHLORIDE 93 mmol/L (98-107); COLOR,URINE STRAW; CREATINE KINASE 368 U/L (55-170); GLUCOSE, URINE >=500 mg/dL (NEGATIVE); KETONES,URINE NEGATIVE (NEGATIVE); POTASSIUM 4.9 mmol/L (3.6-5.0); PROTEIN,URINE NEGATIVE (NEGATIVE); TOTAL PROTEIN 8.6 g/dL (6.3-8.2); URINE SPECIFIC GRAVITY 1.023; UROBILINOGEN,URINE NEGATIVE mg/dL (<2.0)
[2020-07-14 09:44] LABS: GLUCOSE 513 mg/dL (75-110)
[2020-07-14] MEDS ORDERED: INSULIN REG, HUMAN 100 UNIT/ML 3 ML VIAL (PYX) IV ONE ×2 (09:53→11:00)
[2020-07-14 12:05] VITALS: BP 131/90
== END 2020-07-14 12:00 | disposition home or self-care (01) ==
LOC: ER 06:56
DX: E11.65 Type 2 diabetes mellitus with hyperglycemia (principal); T38.3X6A Underdosing of insulin and oral hypoglycemic [antidiabetic] drugs, initial encounter; Z91.120 Patient's intentional underdosing of medication regimen due to financial hardship; Z91.14 Patient's other noncompliance with medication regimen; R42 Dizziness and giddiness; R53.1 Weakness; R63.1 Polydipsia; R53.81 Other malaise; R00.0 Tachycardia, unspecified; R35.0 Frequency of micturition; I10 Essential (primary) hypertension
CPT/HCPCS: 99284; 96360; 96361; 36415; 82962; 82550; 85025; 80053; 81001; J1815; J7030